=== PATIENT | male | born 1955 | race African-American/Black ===

== ENCOUNTER 2018-07-18 10:12 | Day surgery (SDC) | payer OTHER ==
[2018-07-18] VITALS (11 sets, daily range): BP systolic 107–138; BP diastolic 52–79; PULSE 50–65; TEMP 97.5–98.3
[~2018-07-18] VITALS: Ht 175.3 cm; Wt 57.9 kg
[~2018-07-18 10:12] MED LIST: ASPIRIN E.C. 8181 MG PO; B-121000 MCG PO; MULTI VITAMINS1 TAB PO; [UNRECOGNIZED DRUG - CODE]
[2018-07-18 10:50] LABS: HEMATOCRIT 41.2 % (42.0-52.0); HEMOGLOBIN 12.6 g/dl (13.5-18.0); MEAN CELL VOLUME 83 fl (80.0-100.0); MEAN CORPUSCULAR HEMOGLOBIN 25 pg (27.0-31.0); MEAN CORPUSCULAR HGB CONC 31 g/dl (33.0-37.0); MEAN PLATELET VOLUME 10.9 fl (7.4-10.4); PLATELET COUNT 50 K/mm3 (130-400); RED BLOOD COUNT 4.98 M/mm3 (4.20-5.60); REDCELL DISTRIBUTION WIDTH-CV 14.6 % (11.5-14.5)
[2018-07-18 11:04] LABS: ALBUMIN 4.5 gm/dL (3.5-5.0); CALCIUM 9.8 mg/dL (8.4-10.2); CREATININE, serum 0.98 mg/dL (0.66-1.25); TOTAL PROTEIN 7.4 gm/dL (6.4-8.2)
[2018-07-18] MEDS ORDERED: COLACE 100100 MG/CAP PO (17:09)
[2018-07-18] MEDS ORDERED: NORCO 325 MG-51 TAB PO (17:09)
== END 2018-07-18 20:30 | disposition home or self-care (01) ==
LOC: SDCO 10:12 → SURG 17:56 → SDCO 20:30
PROVIDERS: Surgery
DX: K40.90 Unilateral inguinal hernia, without obstruction or gangrene, not specified as recurrent (principal); D69.3 Immune thrombocytopenic purpura; Z87.891 Personal history of nicotine dependence; F43.10 Post-traumatic stress disorder, unspecified; E78.5 Hyperlipidemia, unspecified; D46.9 Myelodysplastic syndrome, unspecified; M41.9 Scoliosis, unspecified; Z79.82 Long term (current) use of aspirin; Z79.899 Other long term (current) drug therapy
CPT/HCPCS: OP; C1781; J0690; J1100; J2405; J2704; J3010; J7120; P9035

== ENCOUNTER 2019-10-11 16:52 | Observation (INO) | payer OTHER ==
[2019-10-11] VITALS (9 sets, daily range): BP systolic 133–162; BP diastolic 72–94; PULSE 54–74; TEMP 97.7–98.5
[~2019-10-11] VITALS: Ht 177.8 cm; Wt 62.7 kg
[~2019-10-11 16:52] MED LIST changes: +CBD PO; +COLACE 100100 MG/CAP PO; +COMPAZINE 110 MG/TAB PO; +DIFLUCAN200 MG PO; +LEVAQUIN 750MG750 M1 PO; +NORCO 325 MG-51 TAB PO; +ZOFRAN8 MG PO; +ZOVIRAX800 MG PO
--- NOTE | 2019-10-11 17:40 | NUR ---
PATIENT ADMITED INTO ROOM 323, DIRECT ADMIT FOR LOW PLATELETS. RIGHT UPPER ARM PICC INPLACE. LAB AT BEDSIDE TO GET LABS. HOSPITALIST AT BEDSIDE. FAMILY PRESENT.
--- NOTE | 2019-10-11 21:35 | NUR ---
Platelet trasfusion started at this time. Pt. educated on transfusion reactions, pt. verbalizes understanding. Vitals stable. Pt. denies pain or other needs. Will remain at bedside for next 15 minutes.
[2019-10-12] VITALS (7 sets, daily range): BP systolic 115–153; BP diastolic 63–86; PULSE 62–74; TEMP 97.3–98.7
[2019-10-12 06:16] LABS: CALCIUM 9.7 mg/dL (8.4-10.2); CREATININE, serum 0.97 (0.66-1.25); MAGNESIUM 1.8 mg/dL (1.6-2.3); POTASSIUM 3.9 mmol/L (3.4-5.0)
[2019-10-12 06:47] LABS: EOS # 0.1 (0.0-0.7); EOS % 2.3 % (0-4.0); GRAN # 1.3 (1.4-6.5); GRAN % 50.3 % (42.2-75.2); HEMOGLOBIN 10.6 g/dl (13.5-18.0); LYMPH # 1.2 (1.2-3.4); LYMPH % 44.7 % (20.0-51.0); MEAN CELL VOLUME 83 fl (80.0-100.0); MEAN CORPUSCULAR HEMOGLOBIN 27 pg (27.0-31.0); MEAN CORPUSCULAR HGB CONC 32 g/dl (33.0-37.0); MONO # 0.1 (0.1-0.6); MONO % 2.3 % (1.7-9.3); PLATELET COUNT 60 K/mm3 (130-400); RED BLOOD COUNT 3.95 M/mm3 (4.20-5.60); REDCELL DISTRIBUTION WIDTH-CV 15.1 % (11.5-14.5)
--- NOTE | 2019-10-12 07:01 | NUR ---
Report from Cody ALANIZ. Patiet sleeping at shift change.
[2019-10-12 07:10] LABS: HEMATOCRIT 32.7 % (42.0-52.0)
--- NOTE | 2019-10-12 08:42 | NUR ---
PT RESTING IN BED ATE BREAKFAST AND DENIES NAUSEA/VOMITING. AM MEDS GIVEN [id number]/
--- NOTE | 2019-10-12 10:52 | NUR ---
Initial visit; Patient thanked Civil Engineering Specialist for looking in on him and offering comfort and prayer.
--- NOTE | 2019-10-12 10:55 | NUR ---
Assistant Bookkeeper met with patient to discuss discharge planning. Patient lives alone in [place] but reports one of his daughters lives across the street from him and another daughter lives about a block away. Patient reports he sees Dr. Terrazas and also is seen by a doctor at [facility]. Patient has medications delivered to his home by the [facility]. Patient does not use any DME and is independent with ADLS. Patient is not sure if he has DPOA-HC set up. Patient plans to return home today with his daughter providing transportation.
--- NOTE | 2019-10-12 13:16 | NUR ---
TRANSFUSION COMPLETE, PT TOLERATED WELL, NO S/S OF TRANSFUSION REACTION.
--- NOTE | 2019-10-12 14:37 | NUR ---
DISCHARGE INSTRUCTIONS PROVIDED TO PATIENT AND FAMILY. QUESTIONS SOLICITED AND ANSWERED. [facility]
--- NOTE | 2019-10-12 14:38 | NUR ---
PICC LINE FLUSHED ALL LUMENS AND WERE FLOWING ON DEPARTURE.
== END 2019-10-12 14:39 | disposition home or self-care (01) ==
LOC: SURG 16:52
PROVIDERS: Nurse Practitioner Family; ADMIT Internal Medicine
DX: D69.6 Thrombocytopenia, unspecified (principal); Z85.6 Personal history of leukemia; Z92.21 Personal history of antineoplastic chemotherapy; F17.210 Nicotine dependence, cigarettes, uncomplicated; F43.10 Post-traumatic stress disorder, unspecified; Z80.8 Family history of malignant neoplasm of other organs or systems
CPT/HCPCS: G0378; G0379; J3475; P9037

== ENCOUNTER → 2020-01-03 | Outpatient (RCR) | payer OTHER ==
[2019-10-05 09:56] VITALS: BP 137/59; BP 149/87; PULSE 63; PULSE 73; TEMP 98.1; TEMP 98.2
--- NOTE | 2019-10-08 09:00 | NUR ---
Here for cares. PICC placed last July in [place]. with sterile technique right upper arm triple lumen PICC dressing change done with insertion site cleansed with chloraprep x 1, chlorhexidine impregnated disk applied, skin prep, stat lock, and tegaderm applied. no signs or symptoms of IV complications noted. no concerns voiced. re-wrapped with chandler to protect catheter. to return to as scheduled. voiced understanding of instructions.
[2019-10-08 09:27] LABS: HEMOGLOBIN 11.3 g/dl (13.5-18.0); MEAN CELL VOLUME 85 fl (80.0-100.0); MEAN CORPUSCULAR HEMOGLOBIN 27 pg (27.0-31.0); MEAN CORPUSCULAR HGB CONC 32 g/dl (33.0-37.0); RED BLOOD COUNT 4.15 M/mm3 (4.20-5.60); REDCELL DISTRIBUTION WIDTH-CV 15.1 % (11.5-14.5)
[2019-10-08 09:37] VITALS: BP 145/85; PULSE 62; TEMP 98
[2019-10-08 11:50] LABS: HEMATOCRIT 35.1 % (42.0-52.0)
[2019-10-08 11:51] LABS: PLATELET COUNT 26 K/mm3 (130-400)
[2019-10-08 12:30] LABS: ALBUMIN 4.1 gm/dL (3.5-5.0); BILIRUBIN,TOTAL 0.5 mg/dL (0.0-1.0); CALCIUM 9.3 mg/dL (8.4-10.2); CREATININE, serum 0.9 (0.66-1.25); POTASSIUM 3.4 mmol/L (3.4-5.0)
[2019-10-08 13:18] LABS: EOSINOPHIL 6 % (0-4); LYMPHOCYTE 38 % (20.0-51.0); NEUTROPHILS 56 % (42.0-75.2)
[2019-10-08 13:21] LABS: ANISOCYTOSIS 1+; HYPOCHROMIA 1+; PLATELET ESTIMATE DECREASED (NORMAL); TARGET CELLS 1+
[2019-10-08 13:22] LABS: POIKILOCYTOSIS 1+; SCHISTOCYTES 1+
[2019-10-11 09:12] VITALS: BP 149/97; PULSE 82; TEMP 97.8
[2019-10-11 09:27] LABS: HEMOGLOBIN 11.2 g/dl (13.5-18.0); MEAN CELL VOLUME 83 fl (80.0-100.0); MEAN CORPUSCULAR HEMOGLOBIN 27 pg (27.0-31.0); MEAN CORPUSCULAR HGB CONC 33 g/dl (33.0-37.0); RED BLOOD COUNT 4.15 M/mm3 (4.20-5.60)
[2019-10-11 09:30] LABS: HEMATOCRIT 34.4 % (42.0-52.0)
[2019-10-11 09:33] LABS: ALBUMIN 3.9 gm/dL (3.5-5.0); BILIRUBIN,TOTAL 0.6 mg/dL (0.0-1.0); CALCIUM 9.8 mg/dL (8.4-10.2); CREATININE, serum 0.82 (0.66-1.25); POTASSIUM 3.2 mmol/L (3.4-5.0); TOTAL PROTEIN 6.8 gm/dL (6.4-8.2)
[2019-10-11 09:46] LABS: PLATELET COUNT 5 K/mm3 (130-400)
[2019-10-11 10:21] LABS: EOSINOPHIL 2 % (0-4); LYMPHOCYTE 43 % (20.0-51.0); NEUTROPHILS 52 % (42.0-75.2)
[2019-10-11 10:28] LABS: PLATELET ESTIMATE DECREASED (NORMAL); TEAR DROP CELLS 1+
[2019-10-11 10:36] LABS: BASOPHIL 0 % (0-2)
--- NOTE | 2019-10-15 09:15 | NUR ---
Here for cares. with sterile technique right upper arm PICC dressing change done with insertion site cleansed with chloraprep x 1, chlorhexidine impregnated disk applied, skin prep, stat lock, and tegaderm applied. no signs or symptoms of IV complications noted. no concerns voiced. re-wrapped with chandler to protect catheter. to continue with cares in [place]. Voiced understanding of instructions.
[2019-10-15 09:27] LABS: HEMOGLOBIN 10.6 g/dl (13.5-18.0); MEAN CELL VOLUME 82 fl (80.0-100.0); MEAN CORPUSCULAR HEMOGLOBIN 26 pg (27.0-31.0); MEAN CORPUSCULAR HGB CONC 32 g/dl (33.0-37.0); PLATELET COUNT 52 K/mm3 (130-400); RED BLOOD COUNT 4.02 M/mm3 (4.20-5.60); REDCELL DISTRIBUTION WIDTH-CV 15.2 % (11.5-14.5)
[2019-10-15 09:30] LABS: HEMATOCRIT 32.8 % (42.0-52.0)
[2019-10-15 09:37] VITALS: BP 132/77; PULSE 64; TEMP 97.9
[2019-10-15 09:44] LABS: ALBUMIN 4.2 gm/dL (3.5-5.0); BILIRUBIN,TOTAL 0.5 mg/dL (0.0-1.0); CALCIUM 9.6 mg/dL (8.4-10.2); CREATININE, serum 1.06 (0.66-1.25); POTASSIUM 3.5 mmol/L (3.4-5.0); TOTAL PROTEIN 7.1 gm/dL (6.4-8.2)
[2019-10-15 10:52] LABS: EOSINOPHIL 2 % (0-4); LYMPHOCYTE 64 % (20.0-51.0); METAMYELOCYTE 1 % (0-0); NEUTROPHILS 29 % (42.0-75.2)
[2019-10-15 10:53] LABS: HYPOCHROMIA 1+; OVALOCYTES 2+; PLATELET ESTIMATE DECREASED (NORMAL); SCHISTOCYTES 1+
[2019-10-18 09:24] VITALS: BP 149/62; PULSE 58; TEMP 97.5
[2019-10-18 09:54] LABS: HEMOGLOBIN 10.5 g/dl (13.5-18.0); MEAN CELL VOLUME 82 fl (80.0-100.0); MEAN CORPUSCULAR HEMOGLOBIN 26 pg (27.0-31.0); MEAN CORPUSCULAR HGB CONC 32 g/dl (33.0-37.0); RED BLOOD COUNT 3.97 M/mm3 (4.20-5.60); REDCELL DISTRIBUTION WIDTH-CV 15.3 % (11.5-14.5)
[2019-10-18 09:58] LABS: ALBUMIN 4.1 gm/dL (3.5-5.0); BILIRUBIN,TOTAL 0.4 mg/dL (0.0-1.0); CALCIUM 9.6 mg/dL (8.4-10.2); CREATININE, serum 0.97 (0.66-1.25); POTASSIUM 3.5 mmol/L (3.4-5.0)
[2019-10-18 10:12] LABS: HEMATOCRIT 32.4 % (42.0-52.0); PLATELET COUNT 18 K/mm3 (130-400)
[2019-10-18 10:40] LABS: EOSINOPHIL 2 % (0-4); LYMPHOCYTE 79 % (20.0-51.0); NEUTROPHILS 11 % (42.0-75.2); PLATELET ESTIMATE DECREASED (NORMAL)
[2019-10-18 10:42] LABS: SPHEROCYTE 1+; TEAR DROP CELLS 1+
[2019-10-18 10:43] LABS: ANISOCYTOSIS 1+
--- NOTE | 2019-10-22 09:00 | NUR ---
Here for cares. with sterile technique right upper arm PICC dressing change done with insertion site cleansed with chloraprep x 1, chlorhexidine impregnate disk applied, skin prep, stat lock, and tegaderm applied. no signs or symptoms of IV complications noted. no concerns voiced. re-wrapped with chandler to protect catheter. to return next week for cares. voiced understanding of instructions.
[2019-10-22 09:28] VITALS: BP 145/81; PULSE 76; TEMP 98.2
[2019-10-22 09:42] LABS: HEMOGLOBIN 10.8 g/dl (13.5-18.0); MEAN CELL VOLUME 81 fl (80.0-100.0); MEAN CORPUSCULAR HEMOGLOBIN 27 pg (27.0-31.0); MEAN CORPUSCULAR HGB CONC 33 g/dl (33.0-37.0); RED BLOOD COUNT 4.07 M/mm3 (4.20-5.60); REDCELL DISTRIBUTION WIDTH-CV 15.8 % (11.5-14.5)
[2019-10-22 09:45] LABS: ALBUMIN 4.3 gm/dL (3.5-5.0); BILIRUBIN,TOTAL 0.6 mg/dL (0.0-1.0); CALCIUM 9.7 mg/dL (8.4-10.2); CREATININE, serum 1.08 (0.66-1.25); POTASSIUM 3.4 mmol/L (3.4-5.0); TOTAL PROTEIN 7.2 gm/dL (6.4-8.2)
[2019-10-22 09:51] LABS: HEMATOCRIT 33.1 % (42.0-52.0); PLATELET COUNT 29 K/mm3 (130-400)
[2019-10-22 10:39] LABS: ANISOCYTOSIS 1+; BAND 2 % (0-10); EOSINOPHIL 2 % (0-4); LYMPHOCYTE 80 % (20.0-51.0); NEUTROPHILS 8 % (42.0-75.2); NUCLEATED RED BLOOD CELL 1 (0-6); OVALOCYTES 1+; PLATELET ESTIMATE DECREASED (NORMAL); TARGET CELLS 2+; TEAR DROP CELLS 1+
--- NOTE | 2019-10-25 09:20 | NUR ---
NOTED CRITICAL PLATELET VALUE, HOWEVER DID NOT CALL MD OFFICE IT IS NOTED IN CHART THAT CARLA RN WAS CALLED AND RECEIVED RESULT ALREADY.
[2019-10-25 09:21] VITALS: BP 133/88; PULSE 87; TEMP 97.1
[2019-10-25 09:40] LABS: HEMOGLOBIN 10.1 g/dl (13.5-18.0); MEAN CELL VOLUME 82 fl (80.0-100.0); MEAN CORPUSCULAR HEMOGLOBIN 26 pg (27.0-31.0); MEAN CORPUSCULAR HGB CONC 32 g/dl (33.0-37.0); RED BLOOD COUNT 3.83 M/mm3 (4.20-5.60); REDCELL DISTRIBUTION WIDTH-CV 16.5 % (11.5-14.5)
[2019-10-25 09:41] LABS: HEMATOCRIT 31.4 % (42.0-52.0)
[2019-10-25 09:44] LABS: PLATELET COUNT 25 K/mm3 (130-400)
[2019-10-25 09:54] LABS: ALBUMIN 4.2 gm/dL (3.5-5.0); BILIRUBIN,TOTAL 0.7 mg/dL (0.0-1.0); CALCIUM 9.6 mg/dL (8.4-10.2); CREATININE, serum 1.07 (0.66-1.25); POTASSIUM 3.2 mmol/L (3.4-5.0)
[2019-10-25 10:49] LABS: BAND 4 % (0-10); EOSINOPHIL 3 % (0-4); LYMPHOCYTE 77 % (20.0-51.0); NEUTROPHILS 9 % (42.0-75.2); PLATELET ESTIMATE DECREASED (NORMAL)
[2019-10-25 10:50] LABS: ANISOCYTOSIS 1+; POIKILOCYTOSIS 1+; SCHISTOCYTES 1+; TEAR DROP CELLS 1+
--- NOTE | 2019-10-29 09:10 | NUR ---
here for cares. With sterile technique right upper arm PICC dressing change done with insertion site cleansed with ChloraPrep 1, chlorhexidine impregnated disc applied, skin prep, StatLock, and Tegaderm applied. No signs or symptoms of IV complications noted. No concerns voiced. Arm wrapped with Russ to protect catheter. Patient to return next week for cares. Patient voiced understanding of instructions.
[2019-10-29 09:14] VITALS: BP 149/99; PULSE 78; TEMP 97.4
[2019-10-29 09:15] LABS: MEAN CELL VOLUME 82 fl (80.0-100.0); MEAN CORPUSCULAR HEMOGLOBIN 27 pg (27.0-31.0); MEAN CORPUSCULAR HGB CONC 33 g/dl (33.0-37.0); RED BLOOD COUNT 3.76 M/mm3 (4.20-5.60); REDCELL DISTRIBUTION WIDTH-CV 17.2 % (11.5-14.5)
[2019-10-29 09:17] LABS: HEMATOCRIT 30.7 % (42.0-52.0)
[2019-10-29 09:20] LABS: PLATELET COUNT 34 K/mm3 (130-400)
[2019-10-29 09:39] LABS: BILIRUBIN,TOTAL 0.6 mg/dL (0.0-1.0); CALCIUM 9.6 mg/dL (8.4-10.2); CREATININE, serum 1.02 (0.66-1.25); POTASSIUM 3.3 mmol/L (3.4-5.0); TOTAL PROTEIN 6.9 gm/dL (6.4-8.2)
[2019-10-29 10:05] LABS: LYMPHOCYTE 63 % (20.0-51.0); MICROCYTOSIS 1+; NEUTROPHILS 19 % (42.0-75.2); POIKILOCYTOSIS 1+
[2019-10-29 10:06] LABS: ANISOCYTOSIS 1+
[2019-11-01 09:21] VITALS: BP 127/72; PULSE 77; TEMP 98
[2019-11-01 09:30] LABS: MEAN CELL VOLUME 83 fl (80.0-100.0); MEAN CORPUSCULAR HEMOGLOBIN 27 pg (27.0-31.0); MEAN CORPUSCULAR HGB CONC 32 g/dl (33.0-37.0); RED BLOOD COUNT 3.78 M/mm3 (4.20-5.60)
[2019-11-01 09:31] LABS: ALBUMIN 4.2 gm/dL (3.5-5.0); BILIRUBIN,TOTAL 0.7 mg/dL (0.0-1.0); CALCIUM 9.5 mg/dL (8.4-10.2); CREATININE, serum 1.09 (0.66-1.25); POTASSIUM 3.3 mmol/L (3.4-5.0); TOTAL PROTEIN 6.9 gm/dL (6.4-8.2)
[2019-11-01 09:32] LABS: HEMATOCRIT 31.2 % (42.0-52.0)
[2019-11-01 09:35] LABS: PLATELET COUNT 38 K/mm3 (130-400)
[2019-11-01 10:32] LABS: BAND 1 % (0-10); NEUTROPHILS 22 % (42.0-75.2); NUCLEATED RED BLOOD CELL 1 (0-6)
[2019-11-01 10:58] LABS: ANISOCYTOSIS 1+
[2019-11-01 10:59] LABS: MICROCYTOSIS 1+; POIKILOCYTOSIS 1+; POLYCHROMASIA 1+; TARGET CELLS 1+
[2019-11-01 11:00] LABS: HYPOCHROMIA 1+; PLATELET ESTIMATE DECREASED (NORMAL)
[2019-11-01 11:01] LABS: LYMPHOCYTE 68 % (20.0-51.0)
[2019-11-02 07:58] LABS: PATHOLOGY DIFF REVIEW OK
--- NOTE | 2019-11-05 09:00 | NUR ---
Here for cares. with sterile technique right upper arm PICC dressing change done with insertion site cleansed with chloraprep x 1, chlorhexidine impreganted disk applied, skin prep, stat lock, and tegaderm applied. no signs or symptoms of IV complications noted. no concerns voiced. re-wrapped with chandler to protect catheter. to return as scheduled for cares. voiced understanding of instructions.
[2019-11-05 09:21] VITALS: BP 147/91; PULSE 75; TEMP 98.4
[2019-11-05 09:41] LABS: MEAN CELL VOLUME 84 fl (80.0-100.0); MEAN CORPUSCULAR HGB CONC 32 g/dl (33.0-37.0); RED BLOOD COUNT 3.63 M/mm3 (4.20-5.60); REDCELL DISTRIBUTION WIDTH-CV 19.7 % (11.5-14.5)
[2019-11-05 09:43] LABS: HEMATOCRIT 30.3 % (42.0-52.0); HEMOGLOBIN 9.7 g/dl (13.5-18.0); MEAN CORPUSCULAR HEMOGLOBIN 27 pg (27.0-31.0)
[2019-11-05 09:44] LABS: PLATELET COUNT 41 K/mm3 (130-400)
[2019-11-05 09:45] LABS: BILIRUBIN,TOTAL 0.6 mg/dL (0.0-1.0); CALCIUM 9.4 mg/dL (8.4-10.2); CREATININE, serum 0.97 (0.66-1.25); POTASSIUM 3.3 mmol/L (3.4-5.0); TOTAL PROTEIN 6.8 gm/dL (6.4-8.2)
[2019-11-05 10:09] LABS: ANISOCYTOSIS 2+; BAND 1 % (0-10); LYMPHOCYTE 57 % (20.0-51.0); NEUTROPHILS 27 % (42.0-75.2); PLATELET ESTIMATE DECREASED (NORMAL)
[2019-11-05 10:10] LABS: MICROCYTOSIS 1+; OVALOCYTES 1+; POIKILOCYTOSIS 2+; TEAR DROP CELLS 1+
[2019-11-08 09:30] VITALS: BP 146/94; PULSE 72; TEMP 97.9
[2019-11-08 09:35] LABS: HEMOGLOBIN 10.1 g/dl (13.5-18.0); MEAN CELL VOLUME 84 fl (80.0-100.0); MEAN CORPUSCULAR HEMOGLOBIN 27 pg (27.0-31.0); MEAN CORPUSCULAR HGB CONC 32 g/dl (33.0-37.0); PLATELET COUNT 51 K/mm3 (130-400); RED BLOOD COUNT 3.75 M/mm3 (4.20-5.60); REDCELL DISTRIBUTION WIDTH-CV 21.2 % (11.5-14.5)
[2019-11-08 09:42] LABS: HEMATOCRIT 31.6 % (42.0-52.0)
[2019-11-08 09:45] LABS: ALBUMIN 4.1 gm/dL (3.5-5.0); BILIRUBIN,TOTAL 0.5 mg/dL (0.0-1.0); CALCIUM 9.6 mg/dL (8.4-10.2); CREATININE, serum 1.01 (0.66-1.25); POTASSIUM 3.4 mmol/L (3.4-5.0); TOTAL PROTEIN 6.8 gm/dL (6.4-8.2)
[2019-11-08 10:14] LABS: BAND 3 % (0-10); HYPOCHROMIA 2+; LYMPHOCYTE 54 % (20.0-51.0); METAMYELOCYTE 2 % (0-0); NEUTROPHILS 20 % (42.0-75.2)
[2019-11-08 10:15] LABS: ANISOCYTOSIS 2+; MICROCYTOSIS 2+; OVALOCYTES 1+; PLATELET ESTIMATE DECREASED (NORMAL); POIKILOCYTOSIS 1+
--- NOTE | 2019-11-12 11:00 | NUR ---
Called pt d/t no show. In [place] today
[2019-11-15 10:20] VITALS: BP 155/87; PULSE 71; TEMP 98
[2019-11-15 10:43] LABS: ALBUMIN 4.2 gm/dL (3.5-5.0); BILIRUBIN,TOTAL 0.5 mg/dL (0.0-1.0); CALCIUM 9.6 mg/dL (8.4-10.2); CREATININE, serum 0.91 (0.66-1.25); POTASSIUM 3.7 mmol/L (3.4-5.0)
[2019-11-15 10:48] LABS: HEMOGLOBIN 10.6 g/dl (13.5-18.0); MEAN CELL VOLUME 86 fl (80.0-100.0); MEAN CORPUSCULAR HEMOGLOBIN 28 pg (27.0-31.0); MEAN CORPUSCULAR HGB CONC 32 g/dl (33.0-37.0); PLATELET COUNT 77 K/mm3 (130-400); RED BLOOD COUNT 3.85 M/mm3 (4.20-5.60)
[2019-11-15 10:49] LABS: HEMATOCRIT 33.2 % (42.0-52.0)
--- NOTE | 2019-11-15 11:08 | NUR ---
Per pt report he will be at tuesday and Tuesday.Dressing change done today by this nurse.
[2019-11-15 11:19] LABS: LYMPHOCYTE 28 % (20.0-51.0); NEUTROPHILS 51 % (42.0-75.2); PLATELET ESTIMATE DECREASED (NORMAL)
[2019-11-15 11:20] LABS: OVALOCYTES 1+
[2019-11-15 11:21] LABS: ANISOCYTOSIS 2+; TEAR DROP CELLS 1+
[2019-11-22 14:17] LABS: HEMOGLOBIN 11.6 g/dl (13.5-18.0); MEAN CELL VOLUME 87 fl (80.0-100.0); MEAN CORPUSCULAR HEMOGLOBIN 27 pg (27.0-31.0); MEAN CORPUSCULAR HGB CONC 31 g/dl (33.0-37.0); PLATELET COUNT 114 K/mm3 (130-400); RED BLOOD COUNT 4.24 M/mm3 (4.20-5.60); REDCELL DISTRIBUTION WIDTH-CV 21.9 % (11.5-14.5)
[2019-11-22 14:20] LABS: HEMATOCRIT 36.9 % (42.0-52.0)
[2019-11-22 14:27] LABS: ALBUMIN 4.5 gm/dL (3.5-5.0); BILIRUBIN,TOTAL 0.5 mg/dL (0.0-1.0); CALCIUM 9.9 mg/dL (8.4-10.2); CREATININE, serum 0.95 (0.66-1.25); POTASSIUM 3.6 mmol/L (3.4-5.0); TOTAL PROTEIN 7.5 gm/dL (6.4-8.2)
[2019-11-22 14:31] VITALS: BP 124/84; PULSE 76; TEMP 98.4
[2019-11-22 16:48] LABS: ANISOCYTOSIS 2+; BAND 8 % (0-10); LYMPHOCYTE 25 % (20.0-51.0); NEUTROPHILS 62 % (42.0-75.2); TARGET CELLS 2+; TEAR DROP CELLS 1+
[2019-11-22 16:49] LABS: HYPOCHROMIA 1+; PLATELET ESTIMATE NORMAL (NORMAL)
[2019-11-26 10:30] VITALS: BP 144/89; PULSE 70; TEMP 97.7
[2019-11-26 10:33] LABS: HEMOGLOBIN 11.3 g/dl (13.5-18.0); MEAN CELL VOLUME 87 fl (80.0-100.0); MEAN CORPUSCULAR HEMOGLOBIN 27 pg (27.0-31.0); MEAN CORPUSCULAR HGB CONC 31 g/dl (33.0-37.0); PLATELET COUNT 105 K/mm3 (130-400); RED BLOOD COUNT 4.17 M/mm3 (4.20-5.60)
[2019-11-26 10:35] LABS: HEMATOCRIT 36.4 % (42.0-52.0)
[2019-11-26 10:47] LABS: ALBUMIN 4.2 gm/dL (3.5-5.0); BILIRUBIN,TOTAL 0.3 mg/dL (0.0-1.0); CALCIUM 9.3 mg/dL (8.4-10.2); CREATININE, serum 0.87 (0.66-1.25); POTASSIUM 3.4 mmol/L (3.4-5.0)
[2019-11-26 11:06] LABS: BAND 4 % (0-10); EOSINOPHIL 3 % (0-4); LYMPHOCYTE 36 % (20.0-51.0); NEUTROPHILS 45 % (42.0-75.2); OVALOCYTES 1+; POIKILOCYTOSIS 1+; TARGET CELLS 1+; TEAR DROP CELLS 1+
[2019-11-26 11:07] LABS: ANISOCYTOSIS 2+; PLATELET ESTIMATE DECREASED (NORMAL)
[2019-11-29 09:37] LABS: HEMOGLOBIN 11.2 g/dl (13.5-18.0); MEAN CELL VOLUME 87 fl (80.0-100.0); MEAN CORPUSCULAR HEMOGLOBIN 27 pg (27.0-31.0); MEAN CORPUSCULAR HGB CONC 31 g/dl (33.0-37.0); PLATELET COUNT 103 K/mm3 (130-400); RED BLOOD COUNT 4.19 M/mm3 (4.20-5.60); REDCELL DISTRIBUTION WIDTH-CV 20.6 % (11.5-14.5)
[2019-11-29 09:40] VITALS: BP 127/75; PULSE 76; TEMP 98.3
[2019-11-29 09:47] LABS: ALBUMIN 4.3 gm/dL (3.5-5.0); BILIRUBIN,TOTAL 0.4 mg/dL (0.0-1.0); CALCIUM 9.7 mg/dL (8.4-10.2); CREATININE, serum 0.82 (0.66-1.25); TOTAL PROTEIN 6.9 gm/dL (6.4-8.2)
[2019-11-29 10:20] LABS: HEMATOCRIT 36.6 % (42.0-52.0)
[2019-11-29 10:35] LABS: BAND 2 % (0-10); EOSINOPHIL 1 % (0-4); LYMPHOCYTE 46 % (20.0-51.0); NEUTROPHILS 49 % (42.0-75.2); OVALOCYTES 2+; PLATELET ESTIMATE DECREASED (NORMAL); SCHISTOCYTES 1+
[2019-12-03 10:28] LABS: HEMATOCRIT 39.6 % (42.0-52.0); HEMOGLOBIN 12.4 g/dl (13.5-18.0); MEAN CELL VOLUME 87 fl (80.0-100.0); MEAN CORPUSCULAR HEMOGLOBIN 27 pg (27.0-31.0); MEAN CORPUSCULAR HGB CONC 31 g/dl (33.0-37.0); PLATELET COUNT 96 K/mm3 (130-400); RED BLOOD COUNT 4.54 M/mm3 (4.20-5.60); REDCELL DISTRIBUTION WIDTH-CV 19.7 % (11.5-14.5)
[2019-12-03 10:31] LABS: ALBUMIN 4.5 gm/dL (3.5-5.0); BILIRUBIN,TOTAL 0.5 mg/dL (0.0-1.0); CALCIUM 10.1 mg/dL (8.4-10.2); CREATININE, serum 1.03 (0.66-1.25); POTASSIUM 4.1 mmol/L (3.4-5.0); TOTAL PROTEIN 7.5 gm/dL (6.4-8.2)
[2019-12-03 10:50] LABS: BAND 2 % (0-10); EOSINOPHIL 2 % (0-4); LYMPHOCYTE 36 % (20.0-51.0); NEUTROPHILS 51 % (42.0-75.2)
[2019-12-03 10:51] LABS: OVALOCYTES 2+; PLATELET ESTIMATE DECREASED (NORMAL); SCHISTOCYTES 2+
[2019-12-03 12:22] VITALS: BP 139/89; PULSE 98; TEMP 98.2
[2019-12-06 10:12] VITALS: BP 131/72; PULSE 86; TEMP 97.5
[2019-12-06 10:50] LABS: HEMATOCRIT 38.7 % (42.0-52.0); HEMOGLOBIN 12.2 g/dl (13.5-18.0); MEAN CELL VOLUME 87 fl (80.0-100.0); MEAN CORPUSCULAR HEMOGLOBIN 27 pg (27.0-31.0); MEAN CORPUSCULAR HGB CONC 32 g/dl (33.0-37.0); PLATELET COUNT 93 K/mm3 (130-400); RED BLOOD COUNT 4.45 M/mm3 (4.20-5.60)
[2019-12-06 11:04] LABS: ALBUMIN 4.4 gm/dL (3.5-5.0); BILIRUBIN,TOTAL 0.3 mg/dL (0.0-1.0); CALCIUM 9.9 mg/dL (8.4-10.2); CREATININE, serum 0.94 (0.66-1.25); POTASSIUM 3.8 mmol/L (3.4-5.0); TOTAL PROTEIN 7.3 gm/dL (6.4-8.2)
[2019-12-06 12:13] LABS: LYMPHOCYTE 27 % (20.0-51.0); NEUTROPHILS 58 % (42.0-75.2)
[2019-12-06 12:38] LABS: PLATELET ESTIMATE DECREASED (NORMAL)
[2019-12-10 10:57] VITALS: BP 129/76; PULSE 75; TEMP 97.8
[2019-12-10 11:01] LABS: HEMATOCRIT 37.8 % (42.0-52.0); HEMOGLOBIN 11.7 g/dl (13.5-18.0); MEAN CELL VOLUME 87 fl (80.0-100.0); MEAN CORPUSCULAR HEMOGLOBIN 27 pg (27.0-31.0); MEAN CORPUSCULAR HGB CONC 31 g/dl (33.0-37.0); PLATELET COUNT 79 K/mm3 (130-400); RED BLOOD COUNT 4.33 M/mm3 (4.20-5.60); REDCELL DISTRIBUTION WIDTH-CV 18.5 % (11.5-14.5)
[2019-12-10 11:02] LABS: ALBUMIN 4.3 gm/dL (3.5-5.0); BILIRUBIN,TOTAL 0.3 mg/dL (0.0-1.0); CALCIUM 9.8 mg/dL (8.4-10.2); CREATININE, serum 0.99 (0.66-1.25); POTASSIUM 3.8 mmol/L (3.4-5.0); TOTAL PROTEIN 6.9 gm/dL (6.4-8.2)
[2019-12-10 11:48] LABS: BAND 1 % (0-10); EOSINOPHIL 3 % (0-4); LYMPHOCYTE 28 % (20.0-51.0); NEUTROPHILS 58 % (42.0-75.2)
[2019-12-10 11:49] LABS: ANISOCYTOSIS 2+; MICROCYTOSIS 1+; POLYCHROMASIA 1+
[2019-12-10 11:51] LABS: OVALOCYTES 1+; PLATELET ESTIMATE DECREASED (NORMAL); POIKILOCYTOSIS 2+; SCHISTOCYTES 1+
[2019-12-11 08:27] LABS: PATHOLOGY DIFF REVIEW OK
[2019-12-13 10:08] VITALS: BP 138/82; PULSE 73; TEMP 97.7
[2019-12-13 11:06] LABS: HEMATOCRIT 37.8 % (42.0-52.0); HEMOGLOBIN 11.7 g/dl (13.5-18.0); MEAN CELL VOLUME 87 fl (80.0-100.0); MEAN CORPUSCULAR HEMOGLOBIN 27 pg (27.0-31.0); MEAN CORPUSCULAR HGB CONC 31 g/dl (33.0-37.0); PLATELET COUNT 78 K/mm3 (130-400); RED BLOOD COUNT 4.37 M/mm3 (4.20-5.60); REDCELL DISTRIBUTION WIDTH-CV 18.1 % (11.5-14.5)
[2019-12-13 11:14] LABS: ALBUMIN 4.2 gm/dL (3.5-5.0); BILIRUBIN,TOTAL 0.4 mg/dL (0.0-1.0); CALCIUM 9.6 mg/dL (8.4-10.2); CREATININE, serum 0.97 (0.66-1.25); POTASSIUM 3.7 mmol/L (3.4-5.0); TOTAL PROTEIN 6.9 gm/dL (6.4-8.2)
[2019-12-13 11:48] LABS: EOSINOPHIL 2 % (0-4); LYMPHOCYTE 26 % (20.0-51.0); NEUTROPHILS 58 % (42.0-75.2)
[2019-12-13 11:49] LABS: HYPOCHROMIA 2+; OVALOCYTES 2+; PLATELET ESTIMATE DECREASED (NORMAL); SCHISTOCYTES 1+; TEAR DROP CELLS 1+
--- NOTE | 2019-12-17 10:10 | NUR ---
Here for cares. With sterile technique right upper arm PICC dressing change done with insertion site cleansed with ChloraPrep 1, chlorhexidine impregnated disc applied, skin prep, StatLock, and Tegaderm applied. No signs or symptoms of IV complications noted. No concerns voiced. With Russ to protect catheter. Patient return as scheduled to express unit for cares. Patient voiced understanding of instructions.
[2019-12-17 10:35] VITALS: BP 129/76; PULSE 72; TEMP 97.9
[2019-12-17 10:57] LABS: HEMATOCRIT 37.7 % (42.0-52.0); MEAN CELL VOLUME 85 fl (80.0-100.0); MEAN CORPUSCULAR HEMOGLOBIN 27 pg (27.0-31.0); MEAN CORPUSCULAR HGB CONC 32 g/dl (33.0-37.0); PLATELET COUNT 76 K/mm3 (130-400); RED BLOOD COUNT 4.45 M/mm3 (4.20-5.60); REDCELL DISTRIBUTION WIDTH-CV 17.6 % (11.5-14.5)
[2019-12-17 11:03] LABS: ALBUMIN 4.2 gm/dL (3.5-5.0); BILIRUBIN,TOTAL 0.4 mg/dL (0.0-1.0); CALCIUM 9.6 mg/dL (8.4-10.2); CREATININE, serum 0.96 (0.66-1.25); POTASSIUM 3.7 mmol/L (3.4-5.0); TOTAL PROTEIN 6.9 gm/dL (6.4-8.2)
[2019-12-17 12:03] LABS: BASOPHIL 1 % (0-2); EOSINOPHIL 2 % (0-4); NEUTROPHILS 42 % (42.0-75.2)
[2019-12-17 12:06] LABS: ANISOCYTOSIS 1+
[2019-12-17 12:08] LABS: MICROCYTOSIS 1+
[2019-12-17 12:09] LABS: POLYCHROMASIA 1+
[2019-12-17 12:11] LABS: POIKILOCYTOSIS 1+
[2019-12-17 12:17] LABS: LYMPHOCYTE 45 % (20.0-51.0); PLATELET ESTIMATE DECREASED (NORMAL)
[2019-12-20 10:17] VITALS: BP 142/89; PULSE 71; TEMP 97.6
[2019-12-20 10:42] LABS: HEMOGLOBIN 11.7 g/dl (13.5-18.0); MEAN CELL VOLUME 85 fl (80.0-100.0); MEAN CORPUSCULAR HEMOGLOBIN 27 pg (27.0-31.0); MEAN CORPUSCULAR HGB CONC 32 g/dl (33.0-37.0); PLATELET COUNT 69 K/mm3 (130-400); REDCELL DISTRIBUTION WIDTH-CV 17.4 % (11.5-14.5)
[2019-12-20 10:48] LABS: ALBUMIN 4.1 gm/dL (3.5-5.0); BILIRUBIN,TOTAL 0.4 mg/dL (0.0-1.0); CALCIUM 9.6 mg/dL (8.4-10.2); CREATININE, serum 0.99 (0.66-1.25); POTASSIUM 3.5 mmol/L (3.4-5.0); TOTAL PROTEIN 6.7 gm/dL (6.4-8.2)
[2019-12-20 10:57] LABS: HEMATOCRIT 36.4 % (42.0-52.0)
[2019-12-20 12:00] LABS: BASOPHIL 1 % (0-2); EOSINOPHIL 1 % (0-4); LYMPHOCYTE 33 % (20.0-51.0); NEUTROPHILS 55 % (42.0-75.2)
[2019-12-20 12:01] LABS: ANISOCYTOSIS 1+; MICROCYTOSIS 1+; OVALOCYTES 1+; POIKILOCYTOSIS 1+; TARGET CELLS 1+
[2019-12-20 12:02] LABS: PLATELET ESTIMATE DECREASED (NORMAL)
[2019-12-24 10:11] VITALS: BP 140/85; PULSE 64; TEMP 98.1
--- NOTE | 2019-12-24 10:15 | NUR ---
here for cares. With sterile technique right upper arm PICC dressing change done with insertion site cleansed with ChloraPrep 1, chlorhexidine impregnated disc applied, skin prep, StatLock, and Tegaderm applied. Signs or symptoms of IV complications noted. No concerns voiced. Arm wrapped with Russ to protect catheter. Patient to continue with cares in the express unit. Patient voiced understanding of instructions.
[2019-12-24 11:30] LABS: HEMATOCRIT 38.2 % (42.0-52.0); HEMOGLOBIN 11.9 g/dl (13.5-18.0); MEAN CELL VOLUME 85 fl (80.0-100.0); MEAN CORPUSCULAR HEMOGLOBIN 27 pg (27.0-31.0); MEAN CORPUSCULAR HGB CONC 31 g/dl (33.0-37.0); PLATELET COUNT 68 K/mm3 (130-400); RED BLOOD COUNT 4.49 M/mm3 (4.20-5.60); REDCELL DISTRIBUTION WIDTH-CV 17.3 % (11.5-14.5)
[2019-12-24 11:31] LABS: ALBUMIN 3.9 gm/dL (3.5-5.0); BILIRUBIN,TOTAL 0.3 mg/dL (0.0-1.0); CALCIUM 9.4 mg/dL (8.4-10.2); CREATININE, serum 0.89 (0.66-1.25); POTASSIUM 3.7 mmol/L (3.4-5.0); TOTAL PROTEIN 6.7 gm/dL (6.4-8.2)
[2019-12-24 12:27] LABS: BAND 1 % (0-10); EOSINOPHIL 3 % (0-4); HYPOCHROMIA 1+; LYMPHOCYTE 29 % (20.0-51.0); NEUTROPHILS 61 % (42.0-75.2); PLATELET ESTIMATE DECREASED (NORMAL)
[2019-12-24 12:28] LABS: ANISOCYTOSIS 1+; MICROCYTOSIS 1+; POIKILOCYTOSIS 1+
[2019-12-24 12:29] LABS: TARGET CELLS 1+
[2019-12-27 10:23] VITALS: BP 122/84; PULSE 67; TEMP 98
[2019-12-27 10:49] LABS: HEMATOCRIT 39.3 % (42.0-52.0); HEMOGLOBIN 12.5 g/dl (13.5-18.0); MEAN CELL VOLUME 85 fl (80.0-100.0); MEAN CORPUSCULAR HEMOGLOBIN 27 pg (27.0-31.0); MEAN CORPUSCULAR HGB CONC 32 g/dl (33.0-37.0); PLATELET COUNT 66 K/mm3 (130-400); RED BLOOD COUNT 4.63 M/mm3 (4.20-5.60); REDCELL DISTRIBUTION WIDTH-CV 17.4 % (11.5-14.5)
[2019-12-27 11:05] LABS: ALBUMIN 4.2 gm/dL (3.5-5.0); BILIRUBIN,TOTAL 0.4 mg/dL (0.0-1.0); CALCIUM 9.6 mg/dL (8.4-10.2); CREATININE, serum 0.9 (0.66-1.25); POTASSIUM 3.6 mmol/L (3.4-5.0); TOTAL PROTEIN 7.2 gm/dL (6.4-8.2)
[2019-12-27 12:12] LABS: BAND 4 % (0-10); NEUTROPHILS 56 % (42.0-75.2); NUCLEATED RED BLOOD CELL 1 (0-6)
[2019-12-27 12:13] LABS: LYMPHOCYTE 28 % (20.0-51.0)
[2019-12-27 12:14] LABS: POIKILOCYTOSIS 1+; TARGET CELLS 1+
[2019-12-27 12:15] LABS: PLATELET ESTIMATE DECREASED (NORMAL)
[2019-12-27 12:16] LABS: ANISOCYTOSIS 1+; MICROCYTOSIS 1+; SCHISTOCYTES 1+
[2019-12-27 12:17] LABS: OVALOCYTES 1+
[2019-12-28 08:26] LABS: PATHOLOGY DIFF REVIEW OK +
[2019-12-31 10:30] VITALS: BP 138/94; PULSE 82; TEMP 97.7
[2019-12-31 10:52] LABS: HEMATOCRIT 40.3 % (42.0-52.0); HEMOGLOBIN 12.8 g/dl (13.5-18.0); MEAN CELL VOLUME 83 fl (80.0-100.0); MEAN CORPUSCULAR HEMOGLOBIN 27 pg (27.0-31.0); MEAN CORPUSCULAR HGB CONC 32 g/dl (33.0-37.0); PLATELET COUNT 62 K/mm3 (130-400); RED BLOOD COUNT 4.83 M/mm3 (4.20-5.60); REDCELL DISTRIBUTION WIDTH-CV 17.1 % (11.5-14.5)
[2019-12-31 10:53] LABS: ALBUMIN 4.3 gm/dL (3.5-5.0); BILIRUBIN,TOTAL 0.6 mg/dL (0.0-1.0); CALCIUM 9.8 mg/dL (8.4-10.2); CREATININE, serum 0.93 (0.66-1.25); POTASSIUM 3.6 mmol/L (3.4-5.0); TOTAL PROTEIN 7.3 gm/dL (6.4-8.2)
--- NOTE | 2019-12-31 11:30 | NUR ---
Informed CORBIN Nicole with [facility] will be unable to do dressing change. This RN will perform dressing change. WBC=5.1
[2019-12-31 11:40] LABS: BAND 3 % (0-10); EOSINOPHIL 1 % (0-4); LYMPHOCYTE 44 % (20.0-51.0); NEUTROPHILS 47 % (42.0-75.2); PLATELET ESTIMATE DECREASED (NORMAL); TARGET CELLS 1+
[~2020-01-03] VITALS: Ht 175.3 cm; Wt 60.6 kg
[2020-01-03 10:55] VITALS: BP 155/94; PULSE 79; TEMP 97.9
[2020-01-03 10:59] LABS: HEMATOCRIT 38.9 % (42.0-52.0); HEMOGLOBIN 12.5 g/dl (13.5-18.0); MEAN CELL VOLUME 84 fl (80.0-100.0); MEAN CORPUSCULAR HEMOGLOBIN 27 pg (27.0-31.0); MEAN CORPUSCULAR HGB CONC 32 g/dl (33.0-37.0); PLATELET COUNT 58 K/mm3 (130-400); RED BLOOD COUNT 4.63 M/mm3 (4.20-5.60); REDCELL DISTRIBUTION WIDTH-CV 16.9 % (11.5-14.5)
[2020-01-03 11:09] LABS: ALBUMIN 4.2 gm/dL (3.5-5.0); BILIRUBIN,TOTAL 0.5 mg/dL (0.0-1.0); CALCIUM 9.4 mg/dL (8.4-10.2); CREATININE, serum 0.89 (0.66-1.25); POTASSIUM 3.5 mmol/L (3.4-5.0)
[2020-01-03 11:21] LABS: BAND 2 % (0-10); BASOPHIL 1 % (0-2); LYMPHOCYTE 35 % (20.0-51.0); NEUTROPHILS 58 % (42.0-75.2); OVALOCYTES 2+; PLATELET ESTIMATE DECREASED (NORMAL)
== END | disposition home or self-care (01) ==
LOC: EUO
PROVIDERS: Internal Medicine; Internal Medicine Medical Oncology
DX: C92.00 Acute myeloblastic leukemia, not having achieved remission (principal)

== ENCOUNTER 2020-04-03 10:00 | Outpatient (RCR) | payer OTHER ==
--- NOTE | 2020-01-07 10:40 | NUR ---
here for cares. With sterile technique right upper arm PICC dressing change done with insertion site cleansed with ChloraPrep 1, chlorhexidine impregnated disc applied, skin prep, StatLock, and Tegaderm applied. No signs or symptoms of IV complications noted. No concerns voiced. Arm wrapped with Russ to protect catheter. Patient to return to express unit for cares. Patient voiced understanding of instructions.
[2020-01-07 10:50] VITALS: BP 129/69; PULSE 67; TEMP 98.1
[2020-01-07 11:00] LABS: HEMATOCRIT 37.8 % (42.0-52.0); HEMOGLOBIN 12.2 g/dl (13.5-18.0); MEAN CELL VOLUME 82 fl (80.0-100.0); MEAN CORPUSCULAR HEMOGLOBIN 27 pg (27.0-31.0); MEAN CORPUSCULAR HGB CONC 32 g/dl (33.0-37.0); PLATELET COUNT 53 K/mm3 (130-400); RED BLOOD COUNT 4.59 M/mm3 (4.20-5.60); REDCELL DISTRIBUTION WIDTH-CV 16.6 % (11.5-14.5)
[2020-01-07 11:01] LABS: ALBUMIN 4.2 gm/dL (3.5-5.0); BILIRUBIN,TOTAL 0.5 mg/dL (0.0-1.0); CALCIUM 9.7 mg/dL (8.4-10.2); CREATININE, serum 1.09 (0.66-1.25); POTASSIUM 4.1 mmol/L (3.4-5.0)
[2020-01-07 11:40] LABS: EOSINOPHIL 1 % (0-4); LYMPHOCYTE 34 % (20.0-51.0); NEUTROPHILS 56 % (42.0-75.2); PLATELET ESTIMATE DECREASED (NORMAL)
--- NOTE | 2020-01-09 13:29 | NUR ---
LEFT MESSAGE ON VOICEMAIL IN REGARDS TO ID SCREENING AND APPT TIME TOMORROW.
[2020-01-10 10:00] VITALS: BP 137/71; PULSE 75; TEMP 98
[2020-01-10 10:42] LABS: HEMOGLOBIN 12.1 g/dl (13.5-18.0); MEAN CELL VOLUME 83 fl (80.0-100.0); MEAN CORPUSCULAR HEMOGLOBIN 27 pg (27.0-31.0); MEAN CORPUSCULAR HGB CONC 33 g/dl (33.0-37.0); PLATELET COUNT 51 K/mm3 (130-400); RED BLOOD COUNT 4.48 M/mm3 (4.20-5.60); REDCELL DISTRIBUTION WIDTH-CV 16.6 % (11.5-14.5)
[2020-01-10 11:06] LABS: ALBUMIN 4.4 gm/dL (3.5-5.0); BILIRUBIN,TOTAL 0.7 mg/dL (0.0-1.0); CREATININE, serum 0.76 (0.66-1.25); POTASSIUM 4.1 mmol/L (3.4-5.0); TOTAL PROTEIN 7.5 gm/dL (6.4-8.2)
[2020-01-10 12:01] LABS: ANISOCYTOSIS 1+; BAND 4 % (0-10); EOSINOPHIL 1 % (0-4); HYPOCHROMIA 2+; LYMPHOCYTE 14 % (20.0-51.0); MICROCYTOSIS 1+; NEUTROPHILS 78 % (42.0-75.2); PLATELET ESTIMATE DECREASED (NORMAL); POIKILOCYTOSIS 1+
[2020-01-14 10:45] LABS: HEMATOCRIT 38.8 % (42.0-52.0); HEMOGLOBIN 12.6 g/dl (13.5-18.0); MEAN CELL VOLUME 83 fl (80.0-100.0); MEAN CORPUSCULAR HEMOGLOBIN 27 pg (27.0-31.0); MEAN CORPUSCULAR HGB CONC 33 g/dl (33.0-37.0); RED BLOOD COUNT 4.67 M/mm3 (4.20-5.60); REDCELL DISTRIBUTION WIDTH-CV 15.9 % (11.5-14.5)
[2020-01-14 10:52] LABS: PLATELET COUNT 45 K/mm3 (130-400)
[2020-01-14 11:02] LABS: ALBUMIN 3.9 gm/dL (3.5-5.0); BILIRUBIN,TOTAL 0.9 mg/dL (0.0-1.0); CALCIUM 9.1 mg/dL (8.4-10.2); CREATININE, serum 0.84 (0.66-1.25); POTASSIUM 3.2 mmol/L (3.4-5.0); TOTAL PROTEIN 6.7 gm/dL (6.4-8.2)
[2020-01-14 11:08] VITALS: BP 118/71; PULSE 72; TEMP 98.3
[2020-01-14 12:50] LABS: LYMPHOCYTE 24 % (20.0-51.0); NEUTROPHILS 73 % (42.0-75.2)
[2020-01-14 12:51] LABS: ANISOCYTOSIS 1+; PLATELET ESTIMATE DECREASED (NORMAL)
[2020-01-14 12:53] LABS: MICROCYTOSIS 1+; TEAR DROP CELLS 1+
[2020-01-17 10:29] VITALS: BP 106/57; PULSE 64; TEMP 98.3
[2020-01-17 10:42] LABS: HEMOGLOBIN 11.9 g/dl (13.5-18.0); MEAN CELL VOLUME 82 fl (80.0-100.0); MEAN CORPUSCULAR HEMOGLOBIN 27 pg (27.0-31.0); MEAN CORPUSCULAR HGB CONC 32 g/dl (33.0-37.0); RED BLOOD COUNT 4.49 M/mm3 (4.20-5.60); REDCELL DISTRIBUTION WIDTH-CV 15.5 % (11.5-14.5)
[2020-01-17 10:43] LABS: ALBUMIN 3.8 gm/dL (3.5-5.0); BILIRUBIN,TOTAL 0.8 mg/dL (0.0-1.0); CALCIUM 9.3 mg/dL (8.4-10.2); CREATININE, serum 0.82 (0.66-1.25)
[2020-01-17 10:45] LABS: HEMATOCRIT 36.9 % (42.0-52.0)
[2020-01-17 10:46] LABS: PLATELET COUNT 23 K/mm3 (130-400)
[2020-01-17 11:31] LABS: EOSINOPHIL 2 % (0-4); LYMPHOCYTE 34 % (20.0-51.0); NEUTROPHILS 63 % (42.0-75.2)
[2020-01-17 11:32] LABS: ANISOCYTOSIS 1+; PLATELET ESTIMATE DECREASED (NORMAL)
[2020-01-17 11:33] LABS: TARGET CELLS 1+
[2020-01-18 13:17] LABS: HEMOGLOBIN 11.6 g/dl (13.5-18.0); MEAN CELL VOLUME 83 fl (80.0-100.0); MEAN CORPUSCULAR HEMOGLOBIN 27 pg (27.0-31.0); MEAN CORPUSCULAR HGB CONC 32 g/dl (33.0-37.0); RED BLOOD COUNT 4.34 M/mm3 (4.20-5.60); REDCELL DISTRIBUTION WIDTH-CV 15.2 % (11.5-14.5)
[2020-01-18 13:23] LABS: PLATELET COUNT 16 K/mm3 (130-400)
[2020-01-18 13:47] LABS: BAND 2 % (0-10); EOSINOPHIL 2 % (0-4); LYMPHOCYTE 37 % (20.0-51.0); NEUTROPHILS 57 % (42.0-75.2)
[2020-01-18 13:49] LABS: ANISOCYTOSIS 1+; OVALOCYTES 1+; PLATELET ESTIMATE DECREASED (NORMAL)
[2020-01-19 15:00] VITALS: BP 137/71; PULSE 58; TEMP 98
--- NOTE | 2020-01-19 15:00 | NUR ---
Pt platelet transfusion started at 60 ml/hr to DENILSON PICC w/o complications. Pt VSS, pt denies any SOB, nausea, dizziness or pain. Consent signed. All questions answered. This nurse remained at bedside w/ pt for first 15 minutes.
[2020-01-19 15:15] VITALS: BP 119/65; PULSE 62
[2020-01-19 15:30] VITALS: BP 125/75; PULSE 62
--- NOTE | 2020-01-19 15:30 | NUR ---
transfusion still infusing w/o complications. Rate increased to 120 ml/hr w/o complications. Pt tolerating well, VSS.
[2020-01-19 16:00] VITALS: BP 114/72; PULSE 60
--- NOTE | 2020-01-19 16:15 | NUR ---
Pt VSS, tolerating transfusion well. No complications. Rate increased to 175 ml/hr, no complications. pt resting in bed.
[2020-01-19 17:00] VITALS: BP 109/68; PULSE 55
--- NOTE | 2020-01-19 17:51 | NUR ---
Pt transfusion completed, pt tolerated well. No further needs. pt escorted out by nurse aide to ER entrance where ride was awaiting.
[2020-01-21 10:21] VITALS: BP 160/74; PULSE 66; TEMP 97.2
--- NOTE | 2020-01-21 10:30 | NUR ---
here for cares. With sterile technique right upper arm PICC dressing change done with insertion site cleansed with ChloraPrep 1, chlorhexidine impregnated disc applied, skin prep, StatLock, and Tegaderm applied. Arm wrapped with Russ to protect catheter. No signs or symptoms of IV complications noted. No concerns voiced. Patient return to express unit as scheduled. Patient voiced understanding of instructions.
[2020-01-21 10:45] LABS: HEMOGLOBIN 10.8 g/dl (13.5-18.0); MEAN CELL VOLUME 83 fl (80.0-100.0); MEAN CORPUSCULAR HEMOGLOBIN 27 pg (27.0-31.0); MEAN CORPUSCULAR HGB CONC 32 g/dl (33.0-37.0); RED BLOOD COUNT 4.07 M/mm3 (4.20-5.60); REDCELL DISTRIBUTION WIDTH-CV 14.6 % (11.5-14.5)
[2020-01-21 10:57] LABS: HEMATOCRIT 33.7 % (42.0-52.0); PLATELET COUNT 16 K/mm3 (130-400)
[2020-01-21 11:03] LABS: ALBUMIN 3.9 gm/dL (3.5-5.0); BILIRUBIN,TOTAL 0.6 mg/dL (0.0-1.0); CALCIUM 9.4 mg/dL (8.4-10.2); CREATININE, serum 0.74 (0.66-1.25); POTASSIUM 3.6 mmol/L (3.4-5.0); TOTAL PROTEIN 6.9 gm/dL (6.4-8.2)
[2020-01-21 13:46] LABS: NEUTROPHILS 27 % (42.0-75.2)
[2020-01-21 14:11] LABS: LYMPHOCYTE 73 % (20.0-51.0); PLATELET ESTIMATE DECREASED (NORMAL)
[2020-01-21 14:12] LABS: TARGET CELLS 1+
[2020-01-21 14:13] LABS: ANISOCYTOSIS 1+
[2020-01-21 14:20] LABS: OVALOCYTES 2+; SCHISTOCYTES 1+
[2020-01-21 14:21] LABS: HYPOCHROMIA 1+
[2020-01-22 08:35] LABS: PATHOLOGY DIFF REVIEW OK
[2020-01-22 10:10] VITALS: BP 168/82; PULSE 72; TEMP 97.4
[2020-01-22 10:31] LABS: HEMOGLOBIN 10.5 g/dl (13.5-18.0); MEAN CELL VOLUME 83 fl (80.0-100.0); MEAN CORPUSCULAR HEMOGLOBIN 27 pg (27.0-31.0); MEAN CORPUSCULAR HGB CONC 32 g/dl (33.0-37.0); RED BLOOD COUNT 3.95 M/mm3 (4.20-5.60); REDCELL DISTRIBUTION WIDTH-CV 14.6 % (11.5-14.5)
[2020-01-22 10:32] LABS: HEMATOCRIT 32.7 % (42.0-52.0)
[2020-01-22 10:34] LABS: PLATELET COUNT 11 K/mm3 (130-400)
[2020-01-22 11:51] LABS: BASOPHIL 1 % (0-2); EOSINOPHIL 2 % (0-4)
[2020-01-22 11:54] LABS: LYMPHOCYTE 69 % (20.0-51.0)
[2020-01-22 11:57] LABS: NEUTROPHILS 28 % (42.0-75.2)
[2020-01-22 12:00] LABS: MICROCYTOSIS 1+
[2020-01-22 12:04] LABS: SCHISTOCYTES 1+; TARGET CELLS 2+
[2020-01-22 12:35] LABS: PLATELET ESTIMATE DECREASED (NORMAL)
[2020-01-23 13:00] VITALS: BP 126/78; PULSE 66; TEMP 98
[2020-01-23 13:22] VITALS: BP 120/77; PULSE 71; TEMP 98.1
[2020-01-23 13:37] VITALS: BP 118/72; PULSE 75; TEMP 98.1
[2020-01-23 14:07] VITALS: BP 134/74; PULSE 77; TEMP 98.1
[2020-01-23 14:30] VITALS: BP 128/74; PULSE 70; TEMP 98
[2020-01-24 10:12] VITALS: BP 132/84; PULSE 62; TEMP 97.9
[2020-01-24 10:34] LABS: ALBUMIN 3.8 gm/dL (3.5-5.0); BILIRUBIN,TOTAL 0.5 mg/dL (0.0-1.0); CALCIUM 9.3 mg/dL (8.4-10.2); CREATININE, serum 0.84 (0.66-1.25); MEAN CELL VOLUME 83 fl (80.0-100.0); MEAN CORPUSCULAR HGB CONC 32 g/dl (33.0-37.0); MEAN PLATELET VOLUME 9.9 fl (7.4-10.4); POTASSIUM 3.7 mmol/L (3.4-5.0); RED BLOOD COUNT 3.69 M/mm3 (4.20-5.60); REDCELL DISTRIBUTION WIDTH-CV 14.3 % (11.5-14.5); TOTAL PROTEIN 6.6 gm/dL (6.4-8.2)
[2020-01-24 11:07] LABS: HEMATOCRIT 30.7 % (42.0-52.0); HEMOGLOBIN 9.9 g/dl (13.5-18.0); MEAN CORPUSCULAR HEMOGLOBIN 27 pg (27.0-31.0)
[2020-01-24 11:08] LABS: PLATELET COUNT 47 K/mm3 (130-400)
[2020-01-24 11:20] LABS: EOSINOPHIL 1 % (0-4); NEUTROPHILS 11 % (42.0-75.2)
[2020-01-24 11:21] LABS: LYMPHOCYTE 88 % (20.0-51.0)
[2020-01-24 11:22] LABS: HYPOCHROMIA 2+
[2020-01-24 11:23] LABS: OVALOCYTES 1+; PLATELET ESTIMATE DECREASED (NORMAL)
[2020-01-25 10:30] VITALS: BP 130/83; PULSE 68; TEMP 98
[2020-01-25 10:32] LABS: MEAN CELL VOLUME 83 fl (80.0-100.0); MEAN CORPUSCULAR HGB CONC 32 g/dl (33.0-37.0); MEAN PLATELET VOLUME 8.1 fl (7.4-10.4); RED BLOOD COUNT 3.63 M/mm3 (4.20-5.60); REDCELL DISTRIBUTION WIDTH-CV 14.2 % (11.5-14.5)
[2020-01-25 10:47] LABS: HEMATOCRIT 30.1 % (42.0-52.0); HEMOGLOBIN 9.7 g/dl (13.5-18.0); MEAN CORPUSCULAR HEMOGLOBIN 27 pg (27.0-31.0)
[2020-01-25 10:48] LABS: PLATELET COUNT 34 K/mm3 (130-400)
[2020-01-25 11:10] LABS: BAND 1 % (0-10); LYMPHOCYTE 96 % (20.0-51.0); NEUTROPHILS 3 % (42.0-75.2)
[2020-01-25 11:15] LABS: PLATELET ESTIMATE DECREASED (NORMAL)
[2020-01-25 11:16] LABS: OVALOCYTES 1+; TARGET CELLS 1+
[2020-01-25 11:17] LABS: HYPOCHROMIA 2+; SCHISTOCYTES 1+
[2020-01-25 11:18] LABS: ANISOCYTOSIS 1+
[2020-01-27 09:13] LABS: MEAN CELL VOLUME 83 fl (80.0-100.0); MEAN CORPUSCULAR HGB CONC 32 g/dl (33.0-37.0); RED BLOOD COUNT 3.63 M/mm3 (4.20-5.60); REDCELL DISTRIBUTION WIDTH-CV 13.8 % (11.5-14.5)
[2020-01-27 09:16] LABS: HEMOGLOBIN 9.7 g/dl (13.5-18.0); MEAN CORPUSCULAR HEMOGLOBIN 27 pg (27.0-31.0); PLATELET COUNT 15 K/mm3 (130-400)
--- NOTE | 2020-01-27 09:28 | NUR ---
CRITICAL LAB CALLED TO THIS RN FROM [facility]. WBC=1.6 PLT=[address] THIS RN WILL CALL [address] RICHMOND WITH RESULTS.
[2020-01-27 10:42] LABS: HYPOCHROMIA 1+; LYMPHOCYTE 98 % (20.0-51.0); OVALOCYTES 1+; PLATELET ESTIMATE DECREASED (NORMAL)
--- NOTE | 2020-01-28 13:00 | NUR ---
Here for cares. with sterile technique right upper arm PICC dressing change done with insertion site cleansed with chloraprep x 1, chlorhexidine impregnated disk applied, skin prep, stat lock, and tegaderm applied. no signs or symptoms of IV complications noted. no concerns voiced. to return as scheduled to . voiced understanding of instructions.
[2020-01-28 13:34] LABS: ALBUMIN 4.1 gm/dL (3.5-5.0); BILIRUBIN,TOTAL 0.5 mg/dL (0.0-1.0); CALCIUM 9.8 mg/dL (8.4-10.2); CREATININE, serum 0.98 (0.66-1.25); TOTAL PROTEIN 6.9 gm/dL (6.4-8.2)
[2020-01-28 14:30] VITALS: BP 133/80; PULSE 66; TEMP 97.3
[2020-01-28 14:45] VITALS: BP 155/93; PULSE 60; TEMP 97.9
[2020-01-28 15:00] VITALS: BP 146/80; PULSE 60; TEMP 98
[2020-01-31 10:23] VITALS: BP 119/70; PULSE 60; TEMP 98.3
[2020-01-31 10:41] LABS: MEAN CELL VOLUME 83 fl (80.0-100.0); MEAN CORPUSCULAR HGB CONC 33 g/dl (33.0-37.0); RED BLOOD COUNT 3.39 M/mm3 (4.20-5.60); REDCELL DISTRIBUTION WIDTH-CV 13.7 % (11.5-14.5)
[2020-01-31 10:48] LABS: ALBUMIN 3.9 gm/dL (3.5-5.0); BILIRUBIN,TOTAL 0.4 mg/dL (0.0-1.0); CALCIUM 9.5 mg/dL (8.4-10.2); CREATININE, serum 0.99 (0.66-1.25); TOTAL PROTEIN 6.8 gm/dL (6.4-8.2)
[2020-01-31 10:52] LABS: HEMOGLOBIN 9.1 g/dl (13.5-18.0); MEAN CORPUSCULAR HEMOGLOBIN 27 pg (27.0-31.0); PLATELET COUNT 20 K/mm3 (130-400)
[2020-01-31 11:27] LABS: LYMPHOCYTE 100 % (20.0-51.0); PLATELET ESTIMATE DECREASED (NORMAL)
[2020-01-31 11:28] LABS: HYPOCHROMIA 1+; SPHEROCYTE 1+
[2020-01-31 11:31] LABS: SCHISTOCYTES 1+
[2020-02-01 10:15] VITALS: BP 145/95; PULSE 80; TEMP 98.4
[2020-02-01 10:20] LABS: MEAN CELL VOLUME 83 fl (80.0-100.0); MEAN CORPUSCULAR HGB CONC 32 g/dl (33.0-37.0); RED BLOOD COUNT 3.41 M/mm3 (4.20-5.60); REDCELL DISTRIBUTION WIDTH-CV 13.8 % (11.5-14.5)
[2020-02-01 10:29] LABS: HEMATOCRIT 28.2 % (42.0-52.0); HEMOGLOBIN 9.1 g/dl (13.5-18.0); MEAN CORPUSCULAR HEMOGLOBIN 27 pg (27.0-31.0); PLATELET COUNT 15 K/mm3 (130-400)
[2020-02-01 12:24] LABS: LYMPHOCYTE 99 % (20.0-51.0); NEUTROPHILS 1 % (42.0-75.2); PLATELET ESTIMATE DECREASED (NORMAL)
[2020-02-01 12:25] LABS: SCHISTOCYTES 1+; SPHEROCYTE 1+
[2020-02-01 12:26] LABS: ANISOCYTOSIS 1+
[2020-02-02] VITALS (7 sets, daily range): BP systolic 133–146; BP diastolic 80–100; PULSE 51–66; TEMP 97.6–97.9
--- NOTE | 2020-02-02 16:55 | NUR ---
PATIENT PRESENTED TO HOSPITAL FOR OUTPATIENT PLATELET TRANSFUSION ORDERED BY ONCOLOGIST DR RICHMOND. SEE EMAR FOR MEDICATIONS ADMINISTERED ORDERED. PATIENT AMBULATED ONTO UNIT INDEPENDENTLY. DENIES C/O PAIN OR DISCOMFORT. SEE FLOW SHEET FOR FVS OBTAINED WNL. LUNG SOUNDS CTA THROUGHOUT TO ASCULTATION. TRANSFUSION COMPLETED PER HOSPITAL POLICY WITHOUYT COMPLICATIONS. TRIPLE LUMEN PICC TO RIGHT UPPER ARM USED WITHOUT DIFFICULTY. DISCHARGED TO HOME @ 1600. POST TRANSFUSION INSTRUCTIONS REVIEWED WITH PATIENT. NO QUESTIONS OR CONCERNS AFTER REVIEW.
--- NOTE | 2020-02-05 10:30 | NUR ---
here for cares. With sterile technique right upper arm PICC dressing change done with insertion site cleansed with ChloraPrep 1, chlorhexidine impregnated disc applied, skin prep, StatLock, and Tegaderm applied. No signs or symptoms of IV complications noted. No concerns voiced. Patient to return as scheduled as to the express unit for cares. Patient voiced understanding of instructions.
[2020-02-05 10:58] LABS: MEAN CELL VOLUME 83 fl (80.0-100.0); MEAN CORPUSCULAR HGB CONC 33 g/dl (33.0-37.0); RED BLOOD COUNT 3.04 M/mm3 (4.20-5.60); REDCELL DISTRIBUTION WIDTH-CV 13.6 % (11.5-14.5)
[2020-02-05 10:59] LABS: ALBUMIN 3.8 gm/dL (3.5-5.0); BILIRUBIN,TOTAL 0.4 mg/dL (0.0-1.0); CALCIUM 9.4 mg/dL (8.4-10.2); CREATININE, serum 1.1 (0.66-1.25); POTASSIUM 4.2 mmol/L (3.4-5.0); TOTAL PROTEIN 6.7 gm/dL (6.4-8.2)
[2020-02-05 11:13] LABS: HEMATOCRIT 25.2 % (42.0-52.0); HEMOGLOBIN 8.2 g/dl (13.5-18.0); MEAN CORPUSCULAR HEMOGLOBIN 27 pg (27.0-31.0); PLATELET COUNT 40 K/mm3 (130-400)
[2020-02-05 11:55] VITALS: BP 124/80; PULSE 58; TEMP 98.1
[2020-02-05 12:12] LABS: HYPOCHROMIA 2+; LYMPHOCYTE 100 % (20.0-51.0); PLATELET ESTIMATE DECREASED (NORMAL)
[2020-02-05 12:13] LABS: OVALOCYTES 2+; SCHISTOCYTES 1+
[2020-02-07 10:37] VITALS: BP 138/66; PULSE 67; TEMP 98
[2020-02-07 10:45] LABS: HEMOGLOBIN 8.4 g/dl (13.5-18.0); MEAN CELL VOLUME 82 fl (80.0-100.0); MEAN CORPUSCULAR HEMOGLOBIN 27 pg (27.0-31.0); MEAN CORPUSCULAR HGB CONC 33 g/dl (33.0-37.0); RED BLOOD COUNT 3.11 M/mm3 (4.20-5.60); REDCELL DISTRIBUTION WIDTH-CV 13.4 % (11.5-14.5)
[2020-02-07 10:46] LABS: HEMATOCRIT 25.6 % (42.0-52.0)
[2020-02-07 10:48] LABS: PLATELET COUNT 20 K/mm3 (130-400)
[2020-02-07 10:53] LABS: ALBUMIN 3.9 gm/dL (3.5-5.0); BILIRUBIN,TOTAL 0.4 mg/dL (0.0-1.0); CALCIUM 9.7 mg/dL (8.4-10.2); CREATININE, serum 0.89 (0.66-1.25); POTASSIUM 3.9 mmol/L (3.4-5.0); TOTAL PROTEIN 6.9 gm/dL (6.4-8.2)
[2020-02-07 11:10] LABS: LYMPHOCYTE 99 % (20.0-51.0); OVALOCYTES 1+; SCHISTOCYTES 1+
[2020-02-07 11:11] LABS: PLATELET ESTIMATE DECREASED (NORMAL)
[2020-02-08 10:34] VITALS: BP 154/82; PULSE 80; TEMP 98.6
[2020-02-08 10:39] LABS: MEAN CELL VOLUME 82 fl (80.0-100.0); MEAN CORPUSCULAR HGB CONC 33 g/dl (33.0-37.0); RED BLOOD COUNT 3.03 M/mm3 (4.20-5.60); REDCELL DISTRIBUTION WIDTH-CV 13.2 % (11.5-14.5)
[2020-02-08 10:45] LABS: HEMATOCRIT 24.8 % (42.0-52.0); HEMOGLOBIN 8.1 g/dl (13.5-18.0); MEAN CORPUSCULAR HEMOGLOBIN 27 pg (27.0-31.0); PLATELET COUNT 13 K/mm3 (130-400)
[2020-02-08 11:00] LABS: LYMPHOCYTE 99 % (20.0-51.0); OVALOCYTES 1+; PLATELET ESTIMATE DECREASED (NORMAL); SCHISTOCYTES 1+
[2020-02-09 13:49] VITALS: BP 122/80; PULSE 59; TEMP 98.3
--- NOTE | 2020-02-09 14:10 | NUR ---
PATIENT HERE TODAY FOR PLATELETS X1 UNIT. HE STATES THAT HE FEELS GOOD. INFUSION STARTED
[2020-02-09 14:22] VITALS: BP 140/74; PULSE 57; TEMP 98.1
[2020-02-09 14:37] VITALS: BP 121/71; PULSE 52; TEMP 97.9
[2020-02-09 15:30] VITALS: BP 111/66; PULSE 54; TEMP 97.7
--- NOTE | 2020-02-09 16:07 | NUR ---
PATIENT DISCHARGED TO HOME VIA PEDIS. HE DECLINES THE WHEELCHAIR.
--- NOTE | 2020-02-11 10:15 | NUR ---
here for cares. With sterile technique right upper arm PICC dressing change done with insertion site cleansed with ChloraPrep 1, chlorhexidine impregnated disc applied, skin prep, StatLock, and Tegaderm applied. No signs or symptoms of IV complications noted. No concerns voiced. Patient to return to express unit is scheduled for cares. Patient voiced understanding of instructions.
[2020-02-11 10:49] VITALS: BP 100/61; PULSE 58; TEMP 98.5
[2020-02-11 10:57] LABS: MEAN CELL VOLUME 81 fl (80.0-100.0); MEAN CORPUSCULAR HGB CONC 32 g/dl (33.0-37.0); RED BLOOD COUNT 2.88 M/mm3 (4.20-5.60); REDCELL DISTRIBUTION WIDTH-CV 13.2 % (11.5-14.5)
[2020-02-11 11:00] LABS: HEMATOCRIT 23.3 % (42.0-52.0); HEMOGLOBIN 7.5 g/dl (13.5-18.0); MEAN CORPUSCULAR HEMOGLOBIN 26 pg (27.0-31.0); PLATELET COUNT 32 K/mm3 (130-400)
[2020-02-11 11:21] LABS: ALBUMIN 3.8 gm/dL (3.5-5.0); BILIRUBIN,TOTAL 0.5 mg/dL (0.0-1.0); CALCIUM 9.5 mg/dL (8.4-10.2); CREATININE, serum 0.96 (0.66-1.25); POTASSIUM 3.5 mmol/L (3.4-5.0); TOTAL PROTEIN 6.8 gm/dL (6.4-8.2)
[2020-02-11 11:53] LABS: LYMPHOCYTE 98 % (20.0-51.0); NEUTROPHILS 2 % (42.0-75.2); OVALOCYTES 1+; PLATELET ESTIMATE DECREASED (NORMAL); SCHISTOCYTES 2+
[2020-02-14 10:31] VITALS: BP 113/78; PULSE 76; TEMP 98
[2020-02-14 10:42] LABS: ALBUMIN 3.9 gm/dL (3.5-5.0); BILIRUBIN,TOTAL 0.5 mg/dL (0.0-1.0); CALCIUM 9.4 mg/dL (8.4-10.2); CREATININE, serum 1.18 (0.66-1.25); POTASSIUM 3.7 mmol/L (3.4-5.0)
[2020-02-14 10:50] LABS: MEAN CELL VOLUME 82 fl (80.0-100.0); MEAN CORPUSCULAR HGB CONC 33 g/dl (33.0-37.0)
[2020-02-14 10:57] LABS: HEMOGLOBIN 7.3 g/dl (13.5-18.0); MEAN CORPUSCULAR HEMOGLOBIN 27 pg (27.0-31.0); PLATELET COUNT 13 K/mm3 (130-400)
[2020-02-14 12:26] LABS: LYMPHOCYTE 96 % (20.0-51.0); NEUTROPHILS 3 % (42.0-75.2); PLATELET ESTIMATE DECREASED (NORMAL)
[2020-02-14 12:27] LABS: OVALOCYTES 1+
[2020-02-15] VITALS (9 sets, daily range): BP systolic 119–138; BP diastolic 69–82; PULSE 49–64; TEMP 97.6–98.1
--- NOTE | 2020-02-18 10:15 | NUR ---
here for cares. With sterile technique right upper arm PICC dressing change done with insertion site cleansed with ChloraPrep 1, chlorhexidine impregnated disc applied, skin prep, StatLock, and Tegaderm applied. No signs or symptoms of IV complications noted. No concerns voiced. Arm wrapped with Russ to protect catheter. Patient to return to the express unit for cares is scheduled. Patient voiced understanding of instructions.
[2020-02-18 10:26] LABS: MEAN CELL VOLUME 83 fl (80.0-100.0); MEAN CORPUSCULAR HGB CONC 33 g/dl (33.0-37.0); RED BLOOD COUNT 2.94 M/mm3 (4.20-5.60); REDCELL DISTRIBUTION WIDTH-CV 13.2 % (11.5-14.5)
[2020-02-18 10:32] LABS: HEMATOCRIT 24.3 % (42.0-52.0); MEAN CORPUSCULAR HEMOGLOBIN 27 pg (27.0-31.0); PLATELET COUNT 17 K/mm3 (130-400)
[2020-02-18 10:33] LABS: BILIRUBIN,TOTAL 0.4 mg/dL (0.0-1.0); CALCIUM 9.8 mg/dL (8.4-10.2); CREATININE, serum 1.17 (0.66-1.25); POTASSIUM 3.6 mmol/L (3.4-5.0)
[2020-02-18 11:37] VITALS: BP 137/86; PULSE 69; TEMP 97.9
[2020-02-18 12:22] LABS: LYMPHOCYTE 73 % (20.0-51.0); NEUTROPHILS 6 % (42.0-75.2)
[2020-02-18 12:26] LABS: HYPOCHROMIA 1+; MICROCYTOSIS 1+; OVALOCYTES 1+; PLATELET ESTIMATE DECREASED (NORMAL)
[2020-02-20 15:01] LABS: MEAN CELL VOLUME 82 fl (80.0-100.0); MEAN CORPUSCULAR HGB CONC 33 g/dl (33.0-37.0); RED BLOOD COUNT 3.02 M/mm3 (4.20-5.60); REDCELL DISTRIBUTION WIDTH-CV 13.4 % (11.5-14.5)
[2020-02-20 15:05] LABS: HEMATOCRIT 24.7 % (42.0-52.0); HEMOGLOBIN 8.2 g/dl (13.5-18.0); MEAN CORPUSCULAR HEMOGLOBIN 27 pg (27.0-31.0); PLATELET COUNT 13 K/mm3 (130-400)
[2020-02-20 15:31] VITALS: BP 123/77; PULSE 62; TEMP 97.7
[2020-02-20 15:50] LABS: BAND 2 % (0-10); LYMPHOCYTE 67 % (20.0-51.0); METAMYELOCYTE 1 % (0-0); MYELOCYTE 2 % (0-0); NEUTROPHILS 19 % (42.0-75.2); PLATELET ESTIMATE NORMAL (NORMAL)
[2020-02-21 08:22] LABS: PATHOLOGY DIFF REVIEW OK
[2020-02-22] VITALS (8 sets, daily range): BP systolic 111–141; BP diastolic 70–82; PULSE 52–65; TEMP 97.4–97.6
[2020-02-25 10:26] LABS: MEAN CELL VOLUME 82 fl (80.0-100.0); MEAN CORPUSCULAR HGB CONC 33 g/dl (33.0-37.0); MEAN PLATELET VOLUME 9.6 fl (7.4-10.4); PLATELET COUNT 57 K/mm3 (130-400); RED BLOOD COUNT 2.73 M/mm3 (4.20-5.60); REDCELL DISTRIBUTION WIDTH-CV 14.1 % (11.5-14.5)
[2020-02-25 10:27] LABS: HEMATOCRIT 22.4 % (42.0-52.0); HEMOGLOBIN 7.4 g/dl (13.5-18.0); MEAN CORPUSCULAR HEMOGLOBIN 27 pg (27.0-31.0)
[2020-02-25 10:45] LABS: ALBUMIN 3.9 gm/dL (3.5-5.0); BILIRUBIN,TOTAL 0.4 mg/dL (0.0-1.0); CALCIUM 9.5 mg/dL (8.4-10.2); CREATININE, serum 0.99 (0.66-1.25); POTASSIUM 3.6 mmol/L (3.4-5.0); TOTAL PROTEIN 6.7 gm/dL (6.4-8.2)
--- NOTE | 2020-02-25 10:45 | NUR ---
here for cares. With sterile technique right upper arm PICC dressing change done with insertion site cleansed with ChloraPrep 1, chlorhexidine impregnated disc applied, skin prep, StatLock, and Tegaderm applied. No signs or symptoms of IV complications noted. No concerns voiced. Arm wrapped with Russ to protect catheter. Patient to return as scheduled for cares. Patient voiced understanding of instructions.
[2020-02-25 11:01] VITALS: BP 121/81; PULSE 68; TEMP 98
[2020-02-25 11:35] LABS: LYMPHOCYTE 75 % (20.0-51.0); NEUTROPHILS 22 % (42.0-75.2); PLATELET ESTIMATE DECREASED (NORMAL)
[2020-02-25 11:36] LABS: HYPOCHROMIA 1+; POLYCHROMASIA 1+
[2020-02-28 10:28] LABS: MEAN CELL VOLUME 82 fl (80.0-100.0); MEAN CORPUSCULAR HGB CONC 32 g/dl (33.0-37.0); RED BLOOD COUNT 2.78 M/mm3 (4.20-5.60); REDCELL DISTRIBUTION WIDTH-CV 14.1 % (11.5-14.5)
[2020-02-28 10:35] LABS: HEMATOCRIT 22.9 % (42.0-52.0); HEMOGLOBIN 7.4 g/dl (13.5-18.0); MEAN CORPUSCULAR HEMOGLOBIN 27 pg (27.0-31.0); PLATELET COUNT 30 K/mm3 (130-400)
[2020-02-28 10:47] LABS: ALBUMIN 3.8 gm/dL (3.5-5.0); BILIRUBIN,TOTAL 0.4 mg/dL (0.0-1.0); CALCIUM 9.4 mg/dL (8.4-10.2); CREATININE, serum 0.94 (0.66-1.25); POTASSIUM 3.7 mmol/L (3.4-5.0); TOTAL PROTEIN 6.7 gm/dL (6.4-8.2)
[2020-02-28 11:01] VITALS: BP 149/85; PULSE 73; TEMP 98.1
[2020-02-28 12:40] LABS: ANISOCYTOSIS 1+; BAND 1 % (0-10); LYMPHOCYTE 62 % (20.0-51.0); NEUTROPHILS 21 % (42.0-75.2); PLATELET ESTIMATE DECREASED (NORMAL)
[2020-03-03 10:15] VITALS: BP 121/77; PULSE 82; TEMP 98
--- NOTE | 2020-03-03 10:15 | NUR ---
here for cares. With sterile technique right upper arm PICC dressing change done with insertion site cleansed with ChloraPrep 1, chlorhexidine impregnated disc applied, skin prep, StatLock, and Tegaderm applied. No signs or symptoms of IV complications noted. No concerns voiced. Arm wrapped with Russ to protect catheter. Patient to return to express unit as scheduled. Patient voiced understanding of instructions.
[2020-03-03 10:37] LABS: MEAN CELL VOLUME 82 fl (80.0-100.0); MEAN CORPUSCULAR HGB CONC 33 g/dl (33.0-37.0); RED BLOOD COUNT 2.78 M/mm3 (4.20-5.60); REDCELL DISTRIBUTION WIDTH-CV 14.6 % (11.5-14.5)
[2020-03-03 10:41] LABS: HEMOGLOBIN 7.6 g/dl (13.5-18.0); MEAN CORPUSCULAR HEMOGLOBIN 27 pg (27.0-31.0)
[2020-03-03 10:42] LABS: HEMATOCRIT 22.9 % (42.0-52.0); PLATELET COUNT 21 K/mm3 (130-400)
[2020-03-03 10:46] LABS: ALBUMIN 4.1 gm/dL (3.5-5.0); BILIRUBIN,TOTAL 0.4 mg/dL (0.0-1.0); CALCIUM 9.7 mg/dL (8.4-10.2); CREATININE, serum 0.99 (0.66-1.25); POTASSIUM 3.8 mmol/L (3.4-5.0); TOTAL PROTEIN 7.1 gm/dL (6.4-8.2)
[2020-03-03 11:12] LABS: BAND 11 % (0-10); HYPOCHROMIA 2+; LYMPHOCYTE 50 % (20.0-51.0); NEUTROPHILS 37 % (42.0-75.2); OVALOCYTES 2+; PLATELET ESTIMATE DECREASED (NORMAL); POLYCHROMASIA 1+; SCHISTOCYTES 1+
[2020-03-06 10:24] VITALS: BP 132/69; PULSE 69; TEMP 98.5
[2020-03-06 10:35] LABS: MEAN CELL VOLUME 84 fl (80.0-100.0); MEAN CORPUSCULAR HGB CONC 32 g/dl (33.0-37.0); RED BLOOD COUNT 2.67 M/mm3 (4.20-5.60)
[2020-03-06 10:38] LABS: HEMATOCRIT 22.4 % (42.0-52.0); HEMOGLOBIN 7.2 g/dl (13.5-18.0); MEAN CORPUSCULAR HEMOGLOBIN 27 pg (27.0-31.0)
[2020-03-06 10:40] LABS: PLATELET COUNT 26 K/mm3 (130-400)
[2020-03-06 10:42] LABS: ALBUMIN 4.1 gm/dL (3.5-5.0); BILIRUBIN,TOTAL 0.5 mg/dL (0.0-1.0); CALCIUM 9.3 mg/dL (8.4-10.2); CREATININE, serum 0.97 (0.66-1.25); POTASSIUM 3.6 mmol/L (3.4-5.0)
[2020-03-06 11:07] LABS: ANISOCYTOSIS 2+; HYPOCHROMIA 1+; LYMPHOCYTE 40 % (20.0-51.0); NEUTROPHILS 48 % (42.0-75.2); NUCLEATED RED BLOOD CELL 1 (0-6); OVALOCYTES 1+; PLATELET ESTIMATE DECREASED (NORMAL)
[2020-03-06 11:08] LABS: POIKILOCYTOSIS 1+; SCHISTOCYTES 1+
[2020-03-07] VITALS (10 sets, daily range): BP systolic 122–138; BP diastolic 67–82; PULSE 46–82; TEMP 97.7–97.8
--- NOTE | 2020-03-10 10:00 | NUR ---
Here for cares. with sterile technique right upper arm PICC dressing change done with insertion site cleansed with chloraprep x 1, chlorhexidine impregnated disk applied, skin prep, stat lock, and tegaderm applied. no signs or symptoms of IV complications noted. no concerns voiced. to continue with cares in [place] as scheduled. voiced understanding of instructions.
[2020-03-10 10:34] LABS: HEMOGLOBIN 10.8 g/dl (13.5-18.0); MEAN CELL VOLUME 86 fl (80.0-100.0); MEAN CORPUSCULAR HEMOGLOBIN 29 pg (27.0-31.0); MEAN CORPUSCULAR HGB CONC 34 g/dl (33.0-37.0); RED BLOOD COUNT 3.76 M/mm3 (4.20-5.60); REDCELL DISTRIBUTION WIDTH-CV 18.3 % (11.5-14.5)
[2020-03-10 10:51] LABS: ALBUMIN 4.2 gm/dL (3.5-5.0); BILIRUBIN,TOTAL 0.7 mg/dL (0.0-1.0); CALCIUM 9.8 mg/dL (8.4-10.2); CREATININE, serum 1.03 (0.66-1.25); POTASSIUM 3.8 mmol/L (3.4-5.0); TOTAL PROTEIN 7.3 gm/dL (6.4-8.2)
[2020-03-10 10:57] LABS: HEMATOCRIT 32.2 % (42.0-52.0)
[2020-03-10 10:58] LABS: PLATELET COUNT 31 K/mm3 (130-400)
[2020-03-10 11:10] LABS: BAND 3 % (0-10); NEUTROPHILS 39 % (42.0-75.2); PLATELET ESTIMATE DECREASED (NORMAL)
[2020-03-10 11:11] LABS: ANISOCYTOSIS 2+; HYPOCHROMIA 1+; OVALOCYTES 1+; SCHISTOCYTES 1+
[2020-03-10 11:12] LABS: LYMPHOCYTE 48 % (20.0-51.0)
[2020-03-10 11:33] VITALS: BP 134/102; PULSE 69; TEMP 97.7
[2020-03-12 10:35] VITALS: BP 128/82; PULSE 77; TEMP 97.7
[2020-03-12 10:38] LABS: HEMOGLOBIN 10.7 g/dl (13.5-18.0); MEAN CELL VOLUME 87 fl (80.0-100.0); MEAN CORPUSCULAR HEMOGLOBIN 29 pg (27.0-31.0); MEAN CORPUSCULAR HGB CONC 33 g/dl (33.0-37.0); RED BLOOD COUNT 3.76 M/mm3 (4.20-5.60); REDCELL DISTRIBUTION WIDTH-CV 19.1 % (11.5-14.5)
[2020-03-12 10:43] LABS: HEMATOCRIT 32.8 % (42.0-52.0)
[2020-03-12 10:45] LABS: PLATELET COUNT 31 K/mm3 (130-400)
[2020-03-12 11:16] LABS: ALBUMIN 4.1 gm/dL (3.5-5.0); BILIRUBIN,TOTAL 0.6 mg/dL (0.0-1.0); CALCIUM 9.6 mg/dL (8.4-10.2); POTASSIUM 3.8 mmol/L (3.4-5.0); TOTAL PROTEIN 7.1 gm/dL (6.4-8.2)
[2020-03-12 11:22] LABS: BAND 2 % (0-10); LYMPHOCYTE 40 % (20.0-51.0); METAMYELOCYTE 1 % (0-0); NEUTROPHILS 50 % (42.0-75.2); NUCLEATED RED BLOOD CELL 1 (0-6); PLATELET ESTIMATE DECREASED (NORMAL)
[2020-03-12 11:23] LABS: ANISOCYTOSIS 2+; OVALOCYTES 2+; SCHISTOCYTES 1+
--- NOTE | 2020-03-17 10:30 | NUR ---
Here for cares. With sterile technique right upper arm PICC dressing change done with insertion site cleansed with ChloraPrep 1, chlorhexidine impregnated disc applied, skin prep, StatLock, and Tegaderm applied. No signs or symptoms of IV complications noted. No concerns voiced. Arm wrapped with Russ to protect catheter. Patient to return for cares as scheduled. Patient voiced understanding of instructions.
[2020-03-17 11:09] LABS: HEMOGLOBIN 10.5 g/dl (13.5-18.0); MEAN CELL VOLUME 89 fl (80.0-100.0); MEAN CORPUSCULAR HEMOGLOBIN 29 pg (27.0-31.0); MEAN CORPUSCULAR HGB CONC 32 g/dl (33.0-37.0); RED BLOOD COUNT 3.69 M/mm3 (4.20-5.60); REDCELL DISTRIBUTION WIDTH-CV 20.3 % (11.5-14.5)
[2020-03-17 11:16] LABS: ALBUMIN 4.1 gm/dL (3.5-5.0); BILIRUBIN,TOTAL 0.6 mg/dL (0.0-1.0); CALCIUM 9.4 mg/dL (8.4-10.2); CREATININE, serum 0.94 (0.66-1.25); POTASSIUM 3.5 mmol/L (3.4-5.0); TOTAL PROTEIN 6.9 gm/dL (6.4-8.2)
[2020-03-17 11:21] LABS: HEMATOCRIT 32.7 % (42.0-52.0)
[2020-03-17 11:23] LABS: PLATELET COUNT 40 K/mm3 (130-400)
[2020-03-17 12:05] VITALS: BP 127/82; PULSE 74; TEMP 97
[2020-03-17 13:38] LABS: ANISOCYTOSIS 3+; LYMPHOCYTE 54 % (20.0-51.0); NEUTROPHILS 36 % (42.0-75.2); POIKILOCYTOSIS 2+; POLYCHROMASIA 1+; TARGET CELLS 1+
[2020-03-17 13:39] LABS: OVALOCYTES 1+; SCHISTOCYTES 1+
[2020-03-20 09:54] VITALS: BP 144/82; PULSE 74; TEMP 97.7
[2020-03-20 10:12] LABS: HEMATOCRIT 32.7 % (42.0-52.0); HEMOGLOBIN 10.6 g/dl (13.5-18.0); MEAN CELL VOLUME 88 fl (80.0-100.0); MEAN CORPUSCULAR HEMOGLOBIN 29 pg (27.0-31.0); MEAN CORPUSCULAR HGB CONC 32 g/dl (33.0-37.0); REDCELL DISTRIBUTION WIDTH-CV 20.6 % (11.5-14.5)
[2020-03-20 10:13] LABS: PLATELET COUNT 45 K/mm3 (130-400)
--- NOTE | 2020-03-20 10:16 | NUR ---
CORBIN Tierney at [facility] office notified of Platelet lab level
[2020-03-20 10:22] LABS: ALBUMIN 4.3 gm/dL (3.5-5.0); BILIRUBIN,TOTAL 0.7 mg/dL (0.0-1.0); CALCIUM 9.6 mg/dL (8.4-10.2); CREATININE, serum 0.97 (0.66-1.25); POTASSIUM 3.5 mmol/L (3.4-5.0); TOTAL PROTEIN 7.2 gm/dL (6.4-8.2)
[2020-03-20 11:10] LABS: ANISOCYTOSIS 2+; BAND 1 % (0-10); EOSINOPHIL 3 % (0-4); HYPOCHROMIA 1+; LYMPHOCYTE 37 % (20.0-51.0); METAMYELOCYTE 1 % (0-0); NEUTROPHILS 38 % (42.0-75.2); NUCLEATED RED BLOOD CELL 1 (0-6); OVALOCYTES 1+; PLATELET ESTIMATE DECREASED (NORMAL); SCHISTOCYTES 1+
--- NOTE | 2020-03-24 10:00 | NUR ---
Here for cares. with sterile technique right upper arm PICC intact with sterile dressing change done with insertion site cleansed with chloraprep x 1, chlorhexidine impregnated disk applied, skin prep, stat lock, and tegaderm applied. no signs or symptoms of IV complications noted. no concerns voiced. re-wrapped with chandler to protect catheter. to return as scheduled for cares. voiced understanding of instructions.
[2020-03-24 10:42] LABS: HEMOGLOBIN 10.3 g/dl (13.5-18.0); MEAN CELL VOLUME 89 fl (80.0-100.0); MEAN CORPUSCULAR HEMOGLOBIN 28 pg (27.0-31.0); MEAN CORPUSCULAR HGB CONC 32 g/dl (33.0-37.0); RED BLOOD COUNT 3.66 M/mm3 (4.20-5.60); REDCELL DISTRIBUTION WIDTH-CV 20.7 % (11.5-14.5)
[2020-03-24 10:47] LABS: HEMATOCRIT 32.7 % (42.0-52.0)
[2020-03-24 10:48] LABS: ALBUMIN 4.2 gm/dL (3.5-5.0); BILIRUBIN,TOTAL 0.6 mg/dL (0.0-1.0); CALCIUM 9.6 mg/dL (8.4-10.2); CREATININE, serum 0.97 (0.66-1.25); TOTAL PROTEIN 7.1 gm/dL (6.4-8.2)
[2020-03-24 11:07] LABS: PLATELET COUNT 47 K/mm3 (130-400)
[2020-03-24 11:25] VITALS: BP 124/78; PULSE 60; TEMP 97.8
[2020-03-24 11:30] LABS: BAND 4 % (0-10); LYMPHOCYTE 44 % (20.0-51.0); NEUTROPHILS 43 % (42.0-75.2)
[2020-03-24 11:32] LABS: ANISOCYTOSIS 2+; OVALOCYTES 1+; PLATELET ESTIMATE DECREASED (NORMAL); POLYCHROMASIA 1+; SCHISTOCYTES 1+
[2020-03-27 09:20] VITALS: BP 131/77; PULSE 73; TEMP 98.3
[2020-03-27 09:34] LABS: HEMOGLOBIN 10.2 g/dl (13.5-18.0); MEAN CELL VOLUME 89 fl (80.0-100.0); MEAN CORPUSCULAR HEMOGLOBIN 28 pg (27.0-31.0); MEAN CORPUSCULAR HGB CONC 32 g/dl (33.0-37.0); PLATELET COUNT 55 K/mm3 (130-400); RED BLOOD COUNT 3.63 M/mm3 (4.20-5.60); REDCELL DISTRIBUTION WIDTH-CV 20.3 % (11.5-14.5)
[2020-03-27 09:36] LABS: HEMATOCRIT 32.2 % (42.0-52.0)
[2020-03-27 09:44] LABS: ALBUMIN 4.3 gm/dL (3.5-5.0); BILIRUBIN,TOTAL 0.8 mg/dL (0.0-1.0); CALCIUM 9.8 mg/dL (8.4-10.2); CREATININE, serum 1.03 (0.66-1.25); POTASSIUM 3.7 mmol/L (3.4-5.0); TOTAL PROTEIN 7.2 gm/dL (6.4-8.2)
[2020-03-27 10:36] LABS: BAND 3 % (0-10); LYMPHOCYTE 46 % (20.0-51.0); PLATELET ESTIMATE DECREASED (NORMAL)
[2020-03-27 10:38] LABS: ANISOCYTOSIS 2+; METAMYELOCYTE 2 % (0-0); NEUTROPHILS 48 % (42.0-75.2); OVALOCYTES 2+; SCHISTOCYTES 2+
[2020-03-31 10:14] VITALS: BP 112/69; PULSE 60; TEMP 98
[2020-03-31 10:30] LABS: ALBUMIN 4.3 gm/dL (3.5-5.0); BILIRUBIN,TOTAL 0.7 mg/dL (0.0-1.0); CALCIUM 9.9 mg/dL (8.4-10.2); CREATININE, serum 0.99 (0.66-1.25); POTASSIUM 3.9 mmol/L (3.4-5.0); TOTAL PROTEIN 7.1 gm/dL (6.4-8.2)
--- NOTE | 2020-03-31 10:30 | NUR ---
Here for cares. with sterile technique right upper arm PICC dressing change done with insertion site cleansed with chloraprep x 1, chlorhexidine impregnated disk applied, skin prep, stat lock, and tegaderm applied. no signs or symptoms of IV complications noted. no concerns voiced. re-wrapped with chandler to protect catheter. to return as scheduled to . voiced understanding of instructions.
[2020-03-31 10:32] LABS: MEAN CELL VOLUME 89 fl (80.0-100.0); MEAN CORPUSCULAR HGB CONC 33 g/dl (33.0-37.0); RED BLOOD COUNT 3.31 M/mm3 (4.20-5.60); REDCELL DISTRIBUTION WIDTH-CV 19.9 % (11.5-14.5)
[2020-03-31 10:36] LABS: HEMATOCRIT 29.5 % (42.0-52.0); HEMOGLOBIN 9.6 g/dl (13.5-18.0); MEAN CORPUSCULAR HEMOGLOBIN 29 pg (27.0-31.0)
[2020-03-31 10:37] LABS: PLATELET COUNT 38 K/mm3 (130-400)
[2020-03-31 11:41] LABS: BAND 9 % (0-10); EOSINOPHIL 2 % (0-4); HYPOCHROMIA 2+; LYMPHOCYTE 45 % (20.0-51.0); METAMYELOCYTE 1 % (0-0); NEUTROPHILS 42 % (42.0-75.2); OVALOCYTES 1+; PLATELET ESTIMATE DECREASED (NORMAL)
[~2020-04-03] VITALS: Ht 175.3 cm; Wt 58.5 kg
[~2020-04-03 10:00] MED LIST changes: +ALOXII; +CYTARABINE; +DAUNORUBICIN; +EMEND 150M150 MG/VIA
[2020-04-03 10:05] VITALS: BP 122/75; PULSE 79; TEMP 98.3
[2020-04-03 10:31] LABS: MEAN CELL VOLUME 88 fl (80.0-100.0); MEAN CORPUSCULAR HGB CONC 32 g/dl (33.0-37.0); REDCELL DISTRIBUTION WIDTH-CV 19.4 % (11.5-14.5)
[2020-04-03 10:38] LABS: ALBUMIN 4.2 gm/dL (3.5-5.0); BILIRUBIN,TOTAL 0.6 mg/dL (0.0-1.0); CALCIUM 9.4 mg/dL (8.4-10.2); CREATININE, serum 1.13 (0.66-1.25); POTASSIUM 3.9 mmol/L (3.4-5.0); TOTAL PROTEIN 6.9 gm/dL (6.4-8.2)
[2020-04-03 10:55] LABS: HEMATOCRIT 28.3 % (42.0-52.0); HEMOGLOBIN 9.1 g/dl (13.5-18.0); MEAN CORPUSCULAR HEMOGLOBIN 28 pg (27.0-31.0)
[2020-04-03 10:57] LABS: PLATELET COUNT 37 K/mm3 (130-400)
[2020-04-03 11:20] LABS: BAND 10 % (0-10); HYPOCHROMIA 2+; LYMPHOCYTE 34 % (20.0-51.0); NEUTROPHILS 55 % (42.0-75.2); PLATELET ESTIMATE DECREASED (NORMAL); POIKILOCYTOSIS 1+
[2020-04-03 11:21] LABS: OVALOCYTES 1+
== END 2020-04-06 ==
LOC: EUO
PROVIDERS: Internal Medicine Medical Oncology
DX: C92.01 Acute myeloblastic leukemia, in remission (principal); Z95.9 Presence of cardiac and vascular implant and graft, unspecified
CPT/HCPCS: OP; J7050; P9037; P9040

== ENCOUNTER 2020-06-02 10:00 | Outpatient (RCR) | payer OTHER ==
[2020-04-07 10:42] VITALS: BP 129/75; PULSE 65; TEMP 97.4
[2020-04-07 10:44] LABS: HEMATOCRIT 26.4 % (42.0-52.0); HEMOGLOBIN 8.6 g/dl (13.5-18.0); MEAN CELL VOLUME 88 fl (80.0-100.0); MEAN CORPUSCULAR HEMOGLOBIN 29 pg (27.0-31.0); MEAN CORPUSCULAR HGB CONC 33 g/dl (33.0-37.0); REDCELL DISTRIBUTION WIDTH-CV 18.8 % (11.5-14.5)
[2020-04-07 10:45] LABS: PLATELET COUNT 32 K/mm3 (130-400)
[2020-04-07 10:58] LABS: ALBUMIN 4.1 gm/dL (3.5-5.0); BILIRUBIN,TOTAL 0.5 mg/dL (0.0-1.0); CALCIUM 9.6 mg/dL (8.4-10.2); CREATININE, serum 1.06 (0.66-1.25); POTASSIUM 3.7 mmol/L (3.4-5.0); TOTAL PROTEIN 6.9 gm/dL (6.4-8.2)
[2020-04-07 12:30] LABS: NEUTROPHILS 32 % (42.0-75.2)
[2020-04-07 12:55] LABS: OVALOCYTES 2+; POIKILOCYTOSIS 2+
[2020-04-07 12:56] LABS: ANISOCYTOSIS 1+; MICROCYTOSIS 1+; PLATELET ESTIMATE DECREASED (NORMAL)
[2020-04-07 12:58] LABS: HYPOCHROMIA 1+; LYMPHOCYTE 49 % (20.0-51.0)
[2020-04-10 09:57] VITALS: BP 121/76; PULSE 87; TEMP 97.9
[2020-04-10 10:26] LABS: MEAN CELL VOLUME 87 fl (80.0-100.0); MEAN CORPUSCULAR HGB CONC 33 g/dl (33.0-37.0); RED BLOOD COUNT 2.87 M/mm3 (4.20-5.60); REDCELL DISTRIBUTION WIDTH-CV 18.5 % (11.5-14.5)
[2020-04-10 10:29] LABS: ALBUMIN 4.1 gm/dL (3.5-5.0); BILIRUBIN,TOTAL 0.6 mg/dL (0.0-1.0); CALCIUM 9.4 mg/dL (8.4-10.2); CREATININE, serum 0.96 (0.66-1.25); POTASSIUM 3.6 mmol/L (3.4-5.0); TOTAL PROTEIN 6.9 gm/dL (6.4-8.2)
[2020-04-10 10:42] LABS: BAND 5 % (0-10); NEUTROPHILS 49 % (42.0-75.2)
[2020-04-10 10:43] LABS: HYPOCHROMIA 1+; OVALOCYTES 1+; SCHISTOCYTES 1+; TARGET CELLS 2+; TEAR DROP CELLS 1+
[2020-04-10 10:44] LABS: LYMPHOCYTE 43 % (20.0-51.0); PLATELET ESTIMATE DECREASED (NORMAL)
[2020-04-10 10:51] LABS: HEMOGLOBIN 8.3 g/dl (13.5-18.0); MEAN CORPUSCULAR HEMOGLOBIN 29 pg (27.0-31.0)
[2020-04-10 10:53] LABS: PLATELET COUNT 27 K/mm3 (130-400)
[2020-04-14 10:18] LABS: MEAN CELL VOLUME 87 fl (80.0-100.0); MEAN CORPUSCULAR HGB CONC 33 g/dl (33.0-37.0); RED BLOOD COUNT 2.63 M/mm3 (4.20-5.60); REDCELL DISTRIBUTION WIDTH-CV 18.4 % (11.5-14.5)
[2020-04-14 10:19] LABS: HEMATOCRIT 22.9 % (42.0-52.0); HEMOGLOBIN 7.5 g/dl (13.5-18.0); MEAN CORPUSCULAR HEMOGLOBIN 29 pg (27.0-31.0)
[2020-04-14 10:23] LABS: ALBUMIN 4.1 gm/dL (3.5-5.0); BILIRUBIN,TOTAL 0.5 mg/dL (0.0-1.0); CALCIUM 9.7 mg/dL (8.4-10.2); CREATININE, serum 1.05 (0.66-1.25); PLATELET COUNT 27 K/mm3 (130-400); POTASSIUM 3.7 mmol/L (3.4-5.0); TOTAL PROTEIN 6.9 gm/dL (6.4-8.2)
--- NOTE | 2020-04-14 10:30 | NUR ---
Here for cares. with sterile technique right upper arm PICC dressing change done with insertion site cleansed with chloraprep x 1, chlorhexidine impregnated disk applied, skin prep, stat lock, and tegaderm applied. no signs or symptoms of IV complications noted. no concerns voiced. re-wrapped with chandler to protect catheter.
[2020-04-14 10:46] VITALS: BP 135/79; PULSE 69; TEMP 97.9
[2020-04-14 11:12] LABS: LYMPHOCYTE 57 % (20.0-51.0); NEUTROPHILS 37 % (42.0-75.2)
[2020-04-14 11:13] LABS: HYPOCHROMIA 1+; OVALOCYTES 1+
[2020-04-14 11:14] LABS: SCHISTOCYTES 1+; TEAR DROP CELLS 1+
[2020-04-14 11:15] LABS: PLATELET ESTIMATE DECREASED (NORMAL); TARGET CELLS 1+
[2020-04-17 10:04] VITALS: BP 127/78; PULSE 71; TEMP 97.5
[2020-04-17 10:13] LABS: MEAN CELL VOLUME 88 fl (80.0-100.0); MEAN CORPUSCULAR HGB CONC 33 g/dl (33.0-37.0); MEAN PLATELET VOLUME 10.6 fl (7.4-10.4); RED BLOOD COUNT 2.42 M/mm3 (4.20-5.60); REDCELL DISTRIBUTION WIDTH-CV 17.7 % (11.5-14.5)
[2020-04-17 10:25] LABS: BILIRUBIN,TOTAL 0.5 mg/dL (0.0-1.0); CALCIUM 9.3 mg/dL (8.4-10.2); CREATININE, serum 0.98 (0.66-1.25); POTASSIUM 3.7 mmol/L (3.4-5.0); TOTAL PROTEIN 6.6 gm/dL (6.4-8.2)
[2020-04-17 10:29] LABS: HEMATOCRIT 21.4 % (42.0-52.0); MEAN CORPUSCULAR HEMOGLOBIN 29 pg (27.0-31.0); PLATELET COUNT 26 K/mm3 (130-400)
[2020-04-17 10:48] LABS: BAND 7 % (0-10); LYMPHOCYTE 70 % (20.0-51.0); NEUTROPHILS 21 % (42.0-75.2); OVALOCYTES 2+; TEAR DROP CELLS 1+
[2020-04-17 10:49] LABS: HYPOCHROMIA 1+; PLATELET ESTIMATE DECREASED (NORMAL)
[2020-04-18] VITALS (9 sets, daily range): BP systolic 101–129; BP diastolic 51–78; PULSE 50–68; TEMP 97.8–98.8
[2020-04-21 10:10] VITALS: BP 128/76; PULSE 68; TEMP 98
--- NOTE | 2020-04-21 10:10 | NUR ---
here for cares. With sterile technique right upper arm PICC dressing change done with insertion site cleansed with ChloraPrep 1, chlorhexidine impregnated disc applied, skin prep, and StatLock applied. No signs or symptoms of IV complications noted. No concerns voiced. Patient to continue with cares in the express unit as scheduled. Patient voiced understanding of instructions.
[2020-04-21 10:22] LABS: MEAN CELL VOLUME 85 fl (80.0-100.0); MEAN CORPUSCULAR HGB CONC 33 g/dl (33.0-37.0); RED BLOOD COUNT 3.39 M/mm3 (4.20-5.60); REDCELL DISTRIBUTION WIDTH-CV 17.9 % (11.5-14.5)
[2020-04-21 10:26] LABS: HEMATOCRIT 28.8 % (42.0-52.0); HEMOGLOBIN 9.5 g/dl (13.5-18.0); MEAN CORPUSCULAR HEMOGLOBIN 28 pg (27.0-31.0); PLATELET COUNT 26 K/mm3 (130-400)
[2020-04-21 10:41] LABS: ALBUMIN 4.3 gm/dL (3.5-5.0); BILIRUBIN,TOTAL 0.6 mg/dL (0.0-1.0); CALCIUM 9.6 mg/dL (8.4-10.2); CREATININE, serum 1.15 (0.66-1.25); POTASSIUM 3.6 mmol/L (3.4-5.0)
[2020-04-21 12:10] LABS: BAND 22 % (0-10); LYMPHOCYTE 63 % (20.0-51.0); NEUTROPHILS 15 % (42.0-75.2)
[2020-04-21 12:11] LABS: HYPOCHROMIA 1+; OVALOCYTES 2+; PLATELET ESTIMATE DECREASED (NORMAL)
[2020-04-24 09:54] VITALS: BP 104/58; PULSE 71; TEMP 97.8
[2020-04-24 10:33] LABS: ALBUMIN 4.3 gm/dL (3.5-5.0); BILIRUBIN,TOTAL 0.6 mg/dL (0.0-1.0); CALCIUM 9.8 mg/dL (8.4-10.2); CREATININE, serum 1.24 (0.66-1.25); POTASSIUM 3.7 mmol/L (3.4-5.0)
--- NOTE | 2020-04-28 09:55 | NUR ---
Here for cares. with sterile technique right upper arm PICC dressing change done with insertion site cleansed with chloraprep x 1, chlorhexidine impreganted disk applied, skin prep, stat lock, and tegaderm applied. no signs or symptoms of IV complications noted. no concerns voiced. re-wrapped with chandler to protecct catheter. to return as scheduled. voiced understanding of instruction.
[2020-04-28 10:14] LABS: MEAN CELL VOLUME 87 fl (80.0-100.0); MEAN CORPUSCULAR HGB CONC 33 g/dl (33.0-37.0); RED BLOOD COUNT 3.03 M/mm3 (4.20-5.60); REDCELL DISTRIBUTION WIDTH-CV 17.3 % (11.5-14.5)
[2020-04-28 10:16] LABS: HEMATOCRIT 26.2 % (42.0-52.0); HEMOGLOBIN 8.7 g/dl (13.5-18.0); MEAN CORPUSCULAR HEMOGLOBIN 29 pg (27.0-31.0)
[2020-04-28 10:18] LABS: PLATELET COUNT 17 K/mm3 (130-400)
[2020-04-28 10:26] LABS: ALBUMIN 3.7 gm/dL (3.5-5.0); BILIRUBIN,TOTAL 0.4 mg/dL (0.0-1.0); CREATININE, serum 1.08 (0.66-1.25); POTASSIUM 3.6 mmol/L (3.4-5.0); TOTAL PROTEIN 6.3 gm/dL (6.4-8.2)
[2020-04-28 11:20] LABS: BAND 3 % (0-10); HYPOCHROMIA 2+; LYMPHOCYTE 70 % (20.0-51.0); NEUTROPHILS 4 % (42.0-75.2); OVALOCYTES 3+; PLATELET ESTIMATE DECREASED (NORMAL); SCHISTOCYTES 2+
[2020-05-01 10:17] LABS: MEAN CELL VOLUME 87 fl (80.0-100.0); MEAN CORPUSCULAR HGB CONC 33 g/dl (33.0-37.0); RED BLOOD COUNT 2.92 M/mm3 (4.20-5.60); REDCELL DISTRIBUTION WIDTH-CV 17.2 % (11.5-14.5)
[2020-05-01 10:18] LABS: HEMATOCRIT 25.4 % (42.0-52.0); HEMOGLOBIN 8.3 g/dl (13.5-18.0); MEAN CORPUSCULAR HEMOGLOBIN 28 pg (27.0-31.0)
[2020-05-01 10:19] LABS: PLATELET COUNT 10 K/mm3 (130-400)
[2020-05-01 10:26] LABS: ALBUMIN 3.9 gm/dL (3.5-5.0); BILIRUBIN,TOTAL 0.6 mg/dL (0.0-1.0); CALCIUM 9.4 mg/dL (8.4-10.2); CREATININE, serum 1.21 (0.66-1.25); POTASSIUM 3.9 mmol/L (3.4-5.0); TOTAL PROTEIN 6.5 gm/dL (6.4-8.2)
[2020-05-01 11:03] VITALS: BP 119/92; PULSE 62; TEMP 98
[2020-05-01 11:10] LABS: LYMPHOCYTE 67 % (20.0-51.0); NEUTROPHILS 6 % (42.0-75.2)
[2020-05-01 11:11] LABS: PLATELET ESTIMATE DECREASED (NORMAL)
[2020-05-01 11:12] LABS: HYPOCHROMIA 1+
[2020-05-01 11:13] LABS: ANISOCYTOSIS 1+; OVALOCYTES 2+
[2020-05-01 11:14] LABS: SCHISTOCYTES 1+
[2020-05-02 13:30] VITALS: BP 118/70; PULSE 56; TEMP 97.2
[2020-05-02 13:36] VITALS: BP 118/70; PULSE 56; TEMP 97.2
[2020-05-02 13:50] VITALS: BP 129/72; PULSE 53; TEMP 97.6
[2020-05-02 14:05] VITALS: BP 124/70; PULSE 55; TEMP 97.6
[2020-05-02 14:35] VITALS: BP 115/73; PULSE 50; TEMP 97.3
--- NOTE | 2020-05-05 10:00 | NUR ---
Here for cares. with sterile technique right upper arm PICC dressing change done with insertion site cleansed with chloraprep x 1, chlorhexidine impregnated disk applied, skin prep, stat lock, and tegaderm applied. no signs or symptoms of IV complications noted. no concerns voiced. re-wrapped with chandler to protect cathter. to continue with cares in [place] voiced understanding of instructions.
[2020-05-05 10:10] LABS: MEAN CELL VOLUME 87 fl (80.0-100.0); MEAN CORPUSCULAR HGB CONC 33 g/dl (33.0-37.0); RED BLOOD COUNT 2.71 M/mm3 (4.20-5.60); REDCELL DISTRIBUTION WIDTH-CV 17.2 % (11.5-14.5)
[2020-05-05 10:16] VITALS: BP 117/64; PULSE 69; TEMP 97.8
[2020-05-05 10:18] LABS: BILIRUBIN,TOTAL 0.5 mg/dL (0.0-1.0); CALCIUM 9.4 mg/dL (8.4-10.2); CREATININE, serum 1.18 (0.66-1.25); POTASSIUM 3.8 mmol/L (3.4-5.0); TOTAL PROTEIN 6.8 gm/dL (6.4-8.2)
[2020-05-05 10:26] LABS: HEMATOCRIT 23.5 % (42.0-52.0); HEMOGLOBIN 7.7 g/dl (13.5-18.0); MEAN CORPUSCULAR HEMOGLOBIN 28 pg (27.0-31.0)
[2020-05-05 10:27] LABS: PLATELET COUNT 24 K/mm3 (130-400)
[2020-05-05 13:40] LABS: LYMPHOCYTE 66 % (20.0-51.0); NEUTROPHILS 5 % (42.0-75.2)
[2020-05-05 13:41] LABS: ANISOCYTOSIS 1+; HYPOCHROMIA 2+; PLATELET ESTIMATE DECREASED (NORMAL)
[2020-05-08 09:26] VITALS: BP 105/68; PULSE 76; TEMP 98.2
[2020-05-08 09:31] LABS: MEAN CELL VOLUME 87 fl (80.0-100.0); MEAN CORPUSCULAR HGB CONC 33 g/dl (33.0-37.0); RED BLOOD COUNT 2.51 M/mm3 (4.20-5.60); REDCELL DISTRIBUTION WIDTH-CV 17.1 % (11.5-14.5)
[2020-05-08 09:38] LABS: HEMATOCRIT 21.7 % (42.0-52.0); HEMOGLOBIN 7.1 g/dl (13.5-18.0); MEAN CORPUSCULAR HEMOGLOBIN 28 pg (27.0-31.0)
[2020-05-08 09:39] LABS: PLATELET COUNT 9 K/mm3 (130-400)
[2020-05-08 10:12] LABS: BILIRUBIN,TOTAL 0.5 mg/dL (0.0-1.0); CALCIUM 9.3 mg/dL (8.4-10.2); CREATININE, serum 1.21 (0.66-1.25); POTASSIUM 3.6 mmol/L (3.4-5.0); TOTAL PROTEIN 6.7 gm/dL (6.4-8.2)
[2020-05-08 10:49] LABS: BAND 6 % (0-10); HYPOCHROMIA 1+; LYMPHOCYTE 69 % (20.0-51.0); NEUTROPHILS 8 % (42.0-75.2); OVALOCYTES 2+; PLATELET ESTIMATE DECREASED (NORMAL); SCHISTOCYTES 1+; TARGET CELLS 2+
[2020-05-09] VITALS (15 sets, daily range): BP systolic 98–149; BP diastolic 50–101; PULSE 55–95; TEMP 97.6–98.3
--- NOTE | 2020-05-09 20:09 | NUR ---
report to [facility] rgay.
--- NOTE | 2020-05-09 20:55 | NUR ---
Patient finished with transfusion; denies any concerns at this time. Upon discharge patient was alert and oriented X4 and left facility independently.
--- NOTE | 2020-05-12 10:00 | NUR ---
here for cares. With sterile technique right upper arm PICC dressing change done with insertion site cleansed with ChloraPrep 1, chlorhexidine impregnated disc applied, skin prep, StatLock, and Tegaderm applied. No signs or symptoms of IV complications noted. No concerns voiced. Patient to return next week as scheduled for cares. Patient voiced understanding of instructions.
[2020-05-12 10:50] LABS: ALBUMIN 3.9 gm/dL (3.5-5.0); BILIRUBIN,TOTAL 0.4 mg/dL (0.0-1.0); CALCIUM 9.1 mg/dL (8.4-10.2); CREATININE, serum 1.05 (0.66-1.25); POTASSIUM 3.7 mmol/L (3.4-5.0); TOTAL PROTEIN 6.4 gm/dL (6.4-8.2)
[2020-05-12 10:53] LABS: HEMOGLOBIN 10.9 g/dl (13.5-18.0); MEAN CELL VOLUME 86 fl (80.0-100.0); MEAN CORPUSCULAR HEMOGLOBIN 28 pg (27.0-31.0); MEAN CORPUSCULAR HGB CONC 33 g/dl (33.0-37.0); RED BLOOD COUNT 3.85 M/mm3 (4.20-5.60); REDCELL DISTRIBUTION WIDTH-CV 16.4 % (11.5-14.5)
[2020-05-12 10:54] LABS: HEMATOCRIT 32.9 % (42.0-52.0)
[2020-05-12 10:55] LABS: PLATELET COUNT 29 K/mm3 (130-400)
[2020-05-12 12:01] VITALS: BP 136/73; PULSE 79; TEMP 97.9
[2020-05-12 12:12] LABS: BAND 7 % (0-10); LYMPHOCYTE 61 % (20.0-51.0); NEUTROPHILS 13 % (42.0-75.2); OVALOCYTES 2+; PLATELET ESTIMATE DECREASED (NORMAL)
[2020-05-15 10:26] LABS: ALBUMIN 3.9 gm/dL (3.5-5.0); BILIRUBIN,TOTAL 0.7 mg/dL (0.0-1.0); CALCIUM 9.2 mg/dL (8.4-10.2); CREATININE, serum 1.03 (0.66-1.25); POTASSIUM 3.6 mmol/L (3.4-5.0); TOTAL PROTEIN 6.4 gm/dL (6.4-8.2)
[2020-05-15 10:27] LABS: MEAN CELL VOLUME 86 fl (80.0-100.0); MEAN CORPUSCULAR HGB CONC 34 g/dl (33.0-37.0); RED BLOOD COUNT 2.92 M/mm3 (4.20-5.60)
[2020-05-15 10:49] LABS: HEMATOCRIT 25.1 % (42.0-52.0); HEMOGLOBIN 8.5 g/dl (13.5-18.0); MEAN CORPUSCULAR HEMOGLOBIN 29 pg (27.0-31.0)
[2020-05-15 10:50] LABS: PLATELET COUNT 11 K/mm3 (130-400)
[2020-05-15 11:16] VITALS: BP 124/73; PULSE 70; TEMP 98.5
[2020-05-15 12:03] LABS: BAND 12 % (0-10); LYMPHOCYTE 68 % (20.0-51.0); NEUTROPHILS 7 % (42.0-75.2); OVALOCYTES 1+
[2020-05-15 12:04] LABS: PLATELET ESTIMATE DECREASED (NORMAL)
[2020-05-16 11:54] LABS: MEAN CELL VOLUME 86 fl (80.0-100.0); MEAN CORPUSCULAR HGB CONC 33 g/dl (33.0-37.0); RED BLOOD COUNT 3.04 M/mm3 (4.20-5.60); REDCELL DISTRIBUTION WIDTH-CV 15.9 % (11.5-14.5)
[2020-05-16 12:00] LABS: HEMATOCRIT 26.1 % (42.0-52.0); HEMOGLOBIN 8.6 g/dl (13.5-18.0); MEAN CORPUSCULAR HEMOGLOBIN 28 pg (27.0-31.0)
[2020-05-16 12:01] LABS: PLATELET COUNT 9 K/mm3 (130-400)
[2020-05-16 13:19] LABS: ANISOCYTOSIS 1+; BAND 6 % (0-10); HYPOCHROMIA 1+; LYMPHOCYTE 68 % (20.0-51.0); NEUTROPHILS 8 % (42.0-75.2); OVALOCYTES 1+; PLATELET ESTIMATE DECREASED (NORMAL)
--- NOTE | 2020-05-17 12:25 | NUR ---
Patient to room 353 by wheelchair from ER entrance. A&Ox4. VSS. PICC DENILSON CDI. Denies pain and discomfort. Oriented patient to room, call light and location. No further needs expressed from the patient. Call light within reach
[2020-05-17 12:37] VITALS: BP 102/66; PULSE 64; TEMP 98.3
--- NOTE | 2020-05-17 12:43 | NUR ---
Platelet transfusion started. VSS, monitoring VS. Patient tolerating transfusion. Nurse at the bedside. Call light within reach
[2020-05-17 12:51] VITALS: BP 104/53; PULSE 67; TEMP 98.3
[2020-05-17 13:16] VITALS: BP 101/65; PULSE 57; TEMP 98.3
--- NOTE | 2020-05-17 13:17 | NUR ---
First transfusion complete. Patient tolerated well. VSS. IV CDI. Second unit transfusing. Nurse at the bedside. Will continue to monitor. Call light within reach
[2020-05-17 13:37] VITALS: BP 138/71; PULSE 64; TEMP 98.3
[2020-05-17 13:55] VITALS: BP 114/75; PULSE 61; TEMP 98.3
[2020-05-17 14:07] VITALS: BP 121/72; PULSE 51
--- NOTE | 2020-05-17 14:07 | NUR ---
Transfusion complete. Patient tolerated well. VSS. PICC DENILSON CDI. No further needs expressed from the patient. Patient DC with PICC in place. Nursing staff transfered patient by wheelchair to vehicle.
--- NOTE | 2020-05-20 10:10 | NUR ---
Here for cares. RIght upper arm PICC intact with sterile dressing change done with insertion site cleansed with chloraprep x 1, chlorhexidine impregnated disk applied, skin prep, stat lock, and tegaderm applied. no signs or symptoms of IV complications noted. no concerns voiced. re-wrapped with chandler to protect catheter. to continue with cares in [place]. voiced understanding of instructions.
[2020-05-20 10:34] VITALS: BP 109/69; PULSE 69; TEMP 97
[2020-05-20 10:37] LABS: MEAN CELL VOLUME 87 fl (80.0-100.0); MEAN CORPUSCULAR HGB CONC 33 g/dl (33.0-37.0); MEAN PLATELET VOLUME 10.8 fl (7.4-10.4); RED BLOOD COUNT 2.72 M/mm3 (4.20-5.60); REDCELL DISTRIBUTION WIDTH-CV 15.9 % (11.5-14.5)
[2020-05-20 10:41] LABS: HEMATOCRIT 23.7 % (42.0-52.0); HEMOGLOBIN 7.8 g/dl (13.5-18.0); MEAN CORPUSCULAR HEMOGLOBIN 29 pg (27.0-31.0); PLATELET COUNT 44 K/mm3 (130-400)
[2020-05-20 10:49] LABS: BILIRUBIN,TOTAL 0.6 mg/dL (0.0-1.0); CALCIUM 9.4 mg/dL (8.4-10.2); CREATININE, serum 1.01 (0.66-1.25); TOTAL PROTEIN 6.7 gm/dL (6.4-8.2)
[2020-05-20 11:49] LABS: BAND 14 % (0-10); LYMPHOCYTE 58 % (20.0-51.0); NEUTROPHILS 17 % (42.0-75.2)
[2020-05-20 11:50] LABS: PLATELET ESTIMATE DECREASED (NORMAL)
[2020-05-20 12:09] LABS: OVALOCYTES 2+
[2020-05-22 10:31] VITALS: BP 120/66; PULSE 84; TEMP 98.2
[2020-05-22 10:55] LABS: MEAN CELL VOLUME 86 fl (80.0-100.0); MEAN CORPUSCULAR HGB CONC 33 g/dl (33.0-37.0); MEAN PLATELET VOLUME 8.9 fl (7.4-10.4); RED BLOOD COUNT 2.52 M/mm3 (4.20-5.60); REDCELL DISTRIBUTION WIDTH-CV 15.9 % (11.5-14.5)
[2020-05-22 11:03] LABS: BILIRUBIN,TOTAL 0.7 mg/dL (0.0-1.0); CALCIUM 9.4 mg/dL (8.4-10.2); CREATININE, serum 1.05 (0.66-1.25); POTASSIUM 3.5 mmol/L (3.4-5.0); TOTAL PROTEIN 6.7 gm/dL (6.4-8.2)
[2020-05-22 11:21] LABS: BAND 4 % (0-10); LYMPHOCYTE 80 % (20.0-51.0); OVALOCYTES 1+; PLATELET ESTIMATE DECREASED (NORMAL); SCHISTOCYTES 1+
[2020-05-22 11:23] LABS: HEMATOCRIT 21.6 % (42.0-52.0); HEMOGLOBIN 7.2 g/dl (13.5-18.0); MEAN CORPUSCULAR HEMOGLOBIN 29 pg (27.0-31.0); PLATELET COUNT 24 K/mm3 (130-400)
[2020-05-23] VITALS (8 sets, daily range): BP systolic 115–127; BP diastolic 67–81; PULSE 67–84; TEMP 97.9–98.9
--- NOTE | 2020-05-26 09:45 | NUR ---
Here for cares. Right upper arm PICC intact with sterile dressing change done with insertion site cleansed with chloraprep x 1, chlorhexidine impregnated disk applied, skin prep, stat lock, and tegaderm applied. no signs or symptoms of IV complications noted. no concerns voiced. re-wrapped with chandler to protect catheter. to return as scheduled to for cares. voiced understanding of instructions.
[2020-05-26 10:10] VITALS: BP 141/89; PULSE 68; TEMP 97.7
[2020-05-26 10:14] LABS: MEAN CELL VOLUME 86 fl (80.0-100.0); MEAN CORPUSCULAR HGB CONC 34 g/dl (33.0-37.0); REDCELL DISTRIBUTION WIDTH-CV 14.7 % (11.5-14.5)
[2020-05-26 10:20] LABS: HEMATOCRIT 27.5 % (42.0-52.0); HEMOGLOBIN 9.2 g/dl (13.5-18.0); MEAN CORPUSCULAR HEMOGLOBIN 29 pg (27.0-31.0); PLATELET COUNT 6 K/mm3 (130-400)
[2020-05-26 10:28] LABS: BILIRUBIN,TOTAL 0.8 mg/dL (0.0-1.0); CALCIUM 9.1 mg/dL (8.4-10.2); CREATININE, serum 0.92 (0.66-1.25); POTASSIUM 3.6 mmol/L (3.4-5.0); TOTAL PROTEIN 6.7 gm/dL (6.4-8.2)
[2020-05-26 12:10] LABS: BAND 3 % (0-10); LYMPHOCYTE 90 % (20.0-51.0); NEUTROPHILS 3 % (42.0-75.2); PLATELET ESTIMATE DECREASED (NORMAL)
[2020-05-26 12:11] LABS: OVALOCYTES 1+; SCHISTOCYTES 1+; TEAR DROP CELLS 1+
--- NOTE | 2020-05-26 17:26 | NUR ---
Pt arrived for platelet transfusion.
[2020-05-26 18:07] VITALS: BP 124/74; PULSE 72; TEMP 98.2
[2020-05-26 18:25] VITALS: BP 115/69; PULSE 67; TEMP 98.1
[2020-05-26 18:40] VITALS: BP 125/74; PULSE 60; TEMP 98
[2020-05-26 19:10] VITALS: BP 120/75; PULSE 64; TEMP 98.1
--- NOTE | 2020-05-26 19:13 | NUR ---
Pt discharged via ambulatory.Pt to return tomorrow for additional labs.
[2020-05-27 10:15] VITALS: BP 129/78; PULSE 64; TEMP 98.7
[2020-05-27 10:23] LABS: MEAN CELL VOLUME 86 fl (80.0-100.0); MEAN CORPUSCULAR HGB CONC 34 g/dl (33.0-37.0); MEAN PLATELET VOLUME 10.1 fl (7.4-10.4); RED BLOOD COUNT 3.05 M/mm3 (4.20-5.60); REDCELL DISTRIBUTION WIDTH-CV 14.6 % (11.5-14.5)
[2020-05-27 10:27] LABS: HEMATOCRIT 26.1 % (42.0-52.0); HEMOGLOBIN 8.9 g/dl (13.5-18.0); MEAN CORPUSCULAR HEMOGLOBIN 29 pg (27.0-31.0); PLATELET COUNT 44 K/mm3 (130-400)
[2020-05-27 10:50] LABS: BAND 4 % (0-10); LYMPHOCYTE 80 % (20.0-51.0); NEUTROPHILS 4 % (42.0-75.2); OVALOCYTES 1+; PLATELET ESTIMATE DECREASED (NORMAL)
[2020-05-27 10:51] LABS: HYPOCHROMIA 1+; SCHISTOCYTES 1+
[2020-05-29 10:28] LABS: MEAN CELL VOLUME 87 fl (80.0-100.0); MEAN CORPUSCULAR HGB CONC 34 g/dl (33.0-37.0); MEAN PLATELET VOLUME 9.5 fl (7.4-10.4); REDCELL DISTRIBUTION WIDTH-CV 14.5 % (11.5-14.5)
[2020-05-29 10:40] LABS: ALBUMIN 4.2 gm/dL (3.5-5.0); BILIRUBIN,TOTAL 0.9 mg/dL (0.0-1.0); CALCIUM 9.6 mg/dL (8.4-10.2); CREATININE, serum 0.8 (0.66-1.25); POTASSIUM 3.5 mmol/L (3.4-5.0); TOTAL PROTEIN 6.9 gm/dL (6.4-8.2)
[2020-05-29 10:47] LABS: HEMATOCRIT 25.1 % (42.0-52.0); HEMOGLOBIN 8.5 g/dl (13.5-18.0); MEAN CORPUSCULAR HEMOGLOBIN 29 pg (27.0-31.0); PLATELET COUNT 24 K/mm3 (130-400)
[2020-05-29 11:20] LABS: LYMPHOCYTE 100 % (20.0-51.0)
[2020-05-29 11:22] LABS: ANISOCYTOSIS 1+; PLATELET ESTIMATE DECREASED (NORMAL)
[2020-05-30 09:56] VITALS: BP 128/74; PULSE 77; TEMP 99.1
[2020-05-30 10:24] LABS: MEAN CELL VOLUME 87 fl (80.0-100.0); MEAN CORPUSCULAR HGB CONC 34 g/dl (33.0-37.0); RED BLOOD COUNT 2.82 M/mm3 (4.20-5.60); REDCELL DISTRIBUTION WIDTH-CV 14.4 % (11.5-14.5)
[2020-05-30 10:42] LABS: HEMATOCRIT 24.5 % (42.0-52.0); HEMOGLOBIN 8.3 g/dl (13.5-18.0); MEAN CORPUSCULAR HEMOGLOBIN 29 pg (27.0-31.0); PLATELET COUNT 19 K/mm3 (130-400)
[2020-05-30 11:13] LABS: BAND 2 % (0-10); LYMPHOCYTE 90 % (20.0-51.0); METAMYELOCYTE 2 % (0-0); OVALOCYTES 1+; PLATELET ESTIMATE DECREASED (NORMAL); TEAR DROP CELLS 1+
[2020-05-30 11:14] LABS: HYPOCHROMIA 1+; SCHISTOCYTES 1+
[~2020-06-02] VITALS: Ht 175.3 cm; Wt 55.7 kg
[~2020-06-02 10:00] MED LIST changes: +VIDAZA100 MG SQ; +ZYLOPRIM 300MG300 MG PO
--- NOTE | 2020-06-02 10:00 | NUR ---
Here for cares. PICC intact right upper arm with sterile dressing change done with insertion site cleansed with chloraprep x 1, chlorhexidine impregnated disk applied, skin prep, stat lock, and tegaderm applied. no signs or symptoms of IV complications noted. no concerns voiced. re-wrapped with chandler to protect catheter. to return next week for cares. voiced understanding of instructions.
[2020-06-02 10:23] VITALS: BP 104/70; PULSE 91; TEMP 98.4
[2020-06-02 10:40] LABS: MEAN CELL VOLUME 85 fl (80.0-100.0); MEAN CORPUSCULAR HGB CONC 35 g/dl (33.0-37.0); RED BLOOD COUNT 2.65 M/mm3 (4.20-5.60); REDCELL DISTRIBUTION WIDTH-CV 14.4 % (11.5-14.5)
[2020-06-02 10:42] LABS: HEMATOCRIT 22.6 % (42.0-52.0); HEMOGLOBIN 7.8 g/dl (13.5-18.0); MEAN CORPUSCULAR HEMOGLOBIN 29 pg (27.0-31.0); PLATELET COUNT 4 K/mm3 (130-400)
[2020-06-02 10:49] LABS: ALBUMIN 3.9 gm/dL (3.5-5.0); BILIRUBIN,TOTAL 1.1 mg/dL (0.0-1.0); CREATININE, serum 1.1 (0.66-1.25); TOTAL PROTEIN 6.8 gm/dL (6.4-8.2)
[2020-06-02 12:12] LABS: BAND 4 % (0-10); PLATELET ESTIMATE DECREASED (NORMAL)
[2020-06-02 12:14] LABS: LYMPHOCYTE 94 % (20.0-51.0)
[2020-07-07] MEDS ORDERED: VENTOLIN0.09 MG IH (11:48)
[2020-07-07] MEDS ORDERED: NOXAFILTAB PO (11:49)
[2020-07-07] MEDS ORDERED: RT SPIRIVA18 MCG IH (11:50)
[2020-07-07] MEDS ORDERED: AFRIN 15 ML15 ML NS (11:51)
== END 2020-06-05 12:02 | disposition home or self-care (01) ==
LOC: EUO 10:00
PROVIDERS: Internal Medicine Medical Oncology
DX: C92.01 Acute myeloblastic leukemia, in remission (principal)
CPT/HCPCS: OP; J7050; P9037; P9040

== ENCOUNTER 2020-08-15 13:00 | Outpatient (RCR) | payer MEDICARE ==
[2020-07-07 12:06] VITALS: BP 101/58; PULSE 71; TEMP 98.5
[2020-07-07 12:22] LABS: HEMATOCRIT 21.2 % (42.0-52.0); MEAN CELL VOLUME 86 fl (80.0-100.0); MEAN CORPUSCULAR HEMOGLOBIN 28 pg (27.0-31.0); MEAN CORPUSCULAR HGB CONC 33 g/dl (33.0-37.0); RED BLOOD COUNT 2.47 M/mm3 (4.20-5.60); REDCELL DISTRIBUTION WIDTH-CV 13.6 % (11.5-14.5)
[2020-07-07 12:23] LABS: PLATELET COUNT 5 K/mm3 (130-400)
[2020-07-07 12:41] LABS: ALBUMIN 3.4 gm/dL (3.5-5.0); BILIRUBIN,TOTAL 0.5 mg/dL (0.0-1.0); CALCIUM 8.9 mg/dL (8.4-10.2); CREATININE, serum 0.97 (0.66-1.25); POTASSIUM 3.8 mmol/L (3.4-5.0); TOTAL PROTEIN 6.4 gm/dL (6.4-8.2)
[2020-07-07 12:42] LABS: LYMPHOCYTE 60 % (20.0-51.0); NEUTROPHILS 3 % (42.0-75.2); PLATELET ESTIMATE DECREASED (NORMAL)
[2020-07-07 12:43] LABS: HYPOCHROMIA 1+; OVALOCYTES 1+; POIKILOCYTOSIS 1+
--- NOTE | 2020-07-07 13:10 | NUR ---
here for cares. PICC intact right upper arm. Insertion site cleansed with ChloraPrep 1, chlorhexidine impregnated disc applied, skin prep, StatLock, and Tegaderm applied. No signs or symptoms of IV complications noted. No concerns voiced. Arm wrapped with Russ to protect catheter. Patient to continue in express unit with cares is scheduled. Patient voiced understanding of instructions.
[2020-07-08] VITALS (17 sets, daily range): BP systolic 97–133; BP diastolic 47–85; PULSE 52–73; TEMP 97.5–97.8
[2020-07-10 09:58] VITALS: BP 132/74; PULSE 73; TEMP 98.4
[2020-07-10 10:16] LABS: MEAN CELL VOLUME 84 fl (80.0-100.0); MEAN CORPUSCULAR HGB CONC 34 g/dl (33.0-37.0); MEAN PLATELET VOLUME 10.4 fl (7.4-10.4); PLATELET COUNT 53 K/mm3 (130-400); RED BLOOD COUNT 3.03 M/mm3 (4.20-5.60); REDCELL DISTRIBUTION WIDTH-CV 13.6 % (11.5-14.5)
[2020-07-10 10:17] LABS: HEMATOCRIT 25.5 % (42.0-52.0); HEMOGLOBIN 8.7 g/dl (13.5-18.0); MEAN CORPUSCULAR HEMOGLOBIN 29 pg (27.0-31.0)
[2020-07-10 10:24] LABS: ALBUMIN 3.6 gm/dL (3.5-5.0); BILIRUBIN,TOTAL 0.6 mg/dL (0.0-1.0); CALCIUM 9.1 mg/dL (8.4-10.2); CREATININE, serum 1.06 (0.66-1.25); POTASSIUM 3.9 mmol/L (3.4-5.0); TOTAL PROTEIN 6.5 gm/dL (6.4-8.2)
[2020-07-10 11:06] LABS: LYMPHOCYTE 32 % (20.0-51.0)
[2020-07-10 11:08] LABS: OVALOCYTES 1+; POIKILOCYTOSIS 1+
[2020-07-11 08:02] LABS: PATHOLOGY DIFF REVIEW OK +
--- NOTE | 2020-07-14 09:45 | NUR ---
here for cares. PICC intact right upper arm with sterile dressing change done and insertion site cleansed with ChloraPrep 1, chlorhexidine impregnated disc applied, skin prep, StatLock, and Tegaderm applied. No signs or symptoms of IV complications noted. No concerns voiced. Patient to return next week for cares. Patient voiced understanding of instructions.
[2020-07-14 09:57] VITALS: BP 120/63; PULSE 64; TEMP 98.2
[2020-07-14 10:03] LABS: MEAN CELL VOLUME 86 fl (80.0-100.0); MEAN CORPUSCULAR HGB CONC 34 g/dl (33.0-37.0); MEAN PLATELET VOLUME 11.2 fl (7.4-10.4); RED BLOOD COUNT 2.96 M/mm3 (4.20-5.60); REDCELL DISTRIBUTION WIDTH-CV 13.5 % (11.5-14.5)
[2020-07-14 10:05] LABS: HEMATOCRIT 25.3 % (42.0-52.0); HEMOGLOBIN 8.5 g/dl (13.5-18.0); MEAN CORPUSCULAR HEMOGLOBIN 29 pg (27.0-31.0); PLATELET COUNT 10 K/mm3 (130-400)
[2020-07-14 10:20] LABS: ALBUMIN 3.5 gm/dL (3.5-5.0); BILIRUBIN,TOTAL 0.6 mg/dL (0.0-1.0); CALCIUM 8.9 mg/dL (8.4-10.2); CREATININE, serum 1.18 (0.66-1.25); POTASSIUM 3.5 mmol/L (3.4-5.0); TOTAL PROTEIN 6.4 gm/dL (6.4-8.2)
[2020-07-14 10:31] LABS: LYMPHOCYTE 54 % (20.0-51.0); METAMYELOCYTE 1 % (0-0); NEUTROPHILS 1 % (42.0-75.2)
[2020-07-14 10:32] LABS: BAND 2 % (0-10)
[2020-07-15] VITALS (9 sets, daily range): BP systolic 111–123; BP diastolic 60–83; PULSE 58–68; TEMP 97.5–98.9
[2020-07-17 10:30] VITALS: BP 115/58; PULSE 69; TEMP 98.6
[2020-07-17 10:36] LABS: MEAN CELL VOLUME 86 fl (80.0-100.0); MEAN CORPUSCULAR HGB CONC 34 g/dl (33.0-37.0); MEAN PLATELET VOLUME 11.2 fl (7.4-10.4); RED BLOOD COUNT 2.73 M/mm3 (4.20-5.60); REDCELL DISTRIBUTION WIDTH-CV 13.8 % (11.5-14.5)
[2020-07-17 10:51] LABS: BAND 3 % (0-10); NEUTROPHILS 1 % (42.0-75.2); PLATELET ESTIMATE DECREASED (NORMAL)
[2020-07-17 10:52] LABS: OVALOCYTES 1+
[2020-07-17 10:53] LABS: HEMATOCRIT 23.4 % (42.0-52.0); HEMOGLOBIN 7.9 g/dl (13.5-18.0); LYMPHOCYTE 58 % (20.0-51.0); MEAN CORPUSCULAR HEMOGLOBIN 29 pg (27.0-31.0)
[2020-07-17 10:54] LABS: PLATELET COUNT 39 K/mm3 (130-400)
[2020-07-17 10:55] LABS: ALBUMIN 3.5 gm/dL (3.5-5.0); BILIRUBIN,TOTAL 0.7 mg/dL (0.0-1.0); CREATININE, serum 1.09 (0.66-1.25); POTASSIUM 3.3 mmol/L (3.4-5.0); TOTAL PROTEIN 6.3 gm/dL (6.4-8.2)
[2020-07-21 10:34] VITALS: BP 111/65; PULSE 64; TEMP 98.7
[2020-07-21 10:40] LABS: ALBUMIN 3.4 gm/dL (3.5-5.0); BILIRUBIN,TOTAL 0.5 mg/dL (0.0-1.0); CALCIUM 8.9 mg/dL (8.4-10.2); CREATININE, serum 1.2 (0.66-1.25); POTASSIUM 3.9 mmol/L (3.4-5.0)
[2020-07-21 10:56] LABS: MEAN CELL VOLUME 85 fl (80.0-100.0); MEAN CORPUSCULAR HGB CONC 33 g/dl (33.0-37.0); RED BLOOD COUNT 2.53 M/mm3 (4.20-5.60); REDCELL DISTRIBUTION WIDTH-CV 14.1 % (11.5-14.5)
[2020-07-21 11:07] LABS: HEMATOCRIT 21.6 % (42.0-52.0); HEMOGLOBIN 7.2 g/dl (13.5-18.0); MEAN CORPUSCULAR HEMOGLOBIN 28 pg (27.0-31.0)
[2020-07-21 11:08] LABS: PLATELET COUNT 6 K/mm3 (130-400)
[2020-07-21 11:57] LABS: BAND 8 % (0-10); LYMPHOCYTE 37 % (20.0-51.0); NEUTROPHILS 1 % (42.0-75.2)
[2020-07-21 11:58] LABS: OVALOCYTES 2+; PLATELET ESTIMATE DECREASED (NORMAL)
[2020-07-22] VITALS (7 sets, daily range): BP systolic 97–105; BP diastolic 46–52; PULSE 50–58; TEMP 97.6–98.7
[2020-07-24 09:30] VITALS: BP 110/67; PULSE 67; TEMP 98
[2020-07-24 09:52] LABS: MEAN CELL VOLUME 85 fl (80.0-100.0); MEAN CORPUSCULAR HGB CONC 33 g/dl (33.0-37.0); MEAN PLATELET VOLUME 10.5 fl (7.4-10.4); RED BLOOD COUNT 2.38 M/mm3 (4.20-5.60); REDCELL DISTRIBUTION WIDTH-CV 14.2 % (11.5-14.5)
[2020-07-24 09:55] LABS: HEMATOCRIT 20.3 % (42.0-52.0); HEMOGLOBIN 6.7 g/dl (13.5-18.0); MEAN CORPUSCULAR HEMOGLOBIN 28 pg (27.0-31.0)
[2020-07-24 09:56] LABS: PLATELET COUNT 19 K/mm3 (130-400)
[2020-07-24 09:57] LABS: ALBUMIN 3.5 gm/dL (3.5-5.0); BILIRUBIN,TOTAL 0.9 mg/dL (0.0-1.0); CALCIUM 8.9 mg/dL (8.4-10.2); CREATININE, serum 1.27 (0.66-1.25); POTASSIUM 3.8 mmol/L (3.4-5.0)
[2020-07-24 11:51] LABS: BAND 2 % (0-10); OVALOCYTES 2+; PLATELET ESTIMATE DECREASED (NORMAL)
[2020-07-24 11:52] LABS: LYMPHOCYTE 52 % (20.0-51.0)
[2020-07-25] VITALS (12 sets, daily range): BP systolic 95–127; BP diastolic 52–74; PULSE 53–73; TEMP 97.6–98.1
[2020-07-25 08:30] LABS: PATHOLOGY DIFF REVIEW OK
[2020-07-28 10:01] LABS: MEAN CELL VOLUME 84 fl (80.0-100.0); MEAN CORPUSCULAR HGB CONC 34 g/dl (33.0-37.0); MEAN PLATELET VOLUME 11.8 fl (7.4-10.4); RED BLOOD COUNT 3.19 M/mm3 (4.20-5.60); REDCELL DISTRIBUTION WIDTH-CV 14.5 % (11.5-14.5)
[2020-07-28 10:04] VITALS: BP 105/55; PULSE 78; TEMP 98
[2020-07-28 10:05] LABS: HEMATOCRIT 26.7 % (42.0-52.0); MEAN CORPUSCULAR HEMOGLOBIN 28 pg (27.0-31.0); PLATELET COUNT 23 K/mm3 (130-400)
[2020-07-28 10:23] LABS: ALBUMIN 3.7 gm/dL (3.5-5.0); BILIRUBIN,TOTAL 0.8 mg/dL (0.0-1.0); CALCIUM 9.1 mg/dL (8.4-10.2); CREATININE, serum 1.33 (0.66-1.25); POTASSIUM 3.1 mmol/L (3.4-5.0); TOTAL PROTEIN 6.2 gm/dL (6.4-8.2)
[2020-07-28 10:38] LABS: BAND 2 % (0-10)
[2020-07-28 10:39] LABS: OVALOCYTES 1+; PLATELET ESTIMATE DECREASED (NORMAL)
[2020-07-28 10:40] LABS: LYMPHOCYTE 38 % (20.0-51.0)
[2020-07-31 10:00] VITALS: BP 103/53; PULSE 60; TEMP 97.6
[2020-07-31 10:32] LABS: MEAN CELL VOLUME 84 fl (80.0-100.0); MEAN CORPUSCULAR HGB CONC 34 g/dl (33.0-37.0); MEAN PLATELET VOLUME 12.7 fl (7.4-10.4); RED BLOOD COUNT 3.14 M/mm3 (4.20-5.60); REDCELL DISTRIBUTION WIDTH-CV 14.5 % (11.5-14.5)
[2020-07-31 10:35] LABS: HEMATOCRIT 26.5 % (42.0-52.0); MEAN CORPUSCULAR HEMOGLOBIN 29 pg (27.0-31.0)
[2020-07-31 10:37] LABS: PLATELET COUNT 7 K/mm3 (130-400)
[2020-07-31 11:05] LABS: ALBUMIN 3.8 gm/dL (3.5-5.0); BILIRUBIN,TOTAL 0.7 mg/dL (0.0-1.0); CALCIUM 9.2 mg/dL (8.4-10.2); CREATININE, serum 1.28 (0.66-1.25); POTASSIUM 3.9 mmol/L (3.4-5.0); TOTAL PROTEIN 6.1 gm/dL (6.4-8.2)
[2020-07-31 11:08] LABS: LYMPHOCYTE 22 % (20.0-51.0); NEUTROPHILS 4 % (42.0-75.2)
[2020-07-31 11:09] LABS: PLATELET ESTIMATE DECREASED (NORMAL)
[2020-07-31 11:14] LABS: OVALOCYTES 1+; SCHISTOCYTES 1+; SPHEROCYTE 1+; TARGET CELLS 1+
[2020-08-01] VITALS (9 sets, daily range): BP systolic 100–134; BP diastolic 49–85; PULSE 52–87; TEMP 98–98.2
[2020-08-04 10:44] LABS: MEAN CELL VOLUME 84 fl (80.0-100.0); MEAN CORPUSCULAR HGB CONC 34 g/dl (33.0-37.0); RED BLOOD COUNT 2.76 M/mm3 (4.20-5.60); REDCELL DISTRIBUTION WIDTH-CV 14.5 % (11.5-14.5)
[2020-08-04 10:46] LABS: HEMATOCRIT 23.3 % (42.0-52.0); HEMOGLOBIN 7.9 g/dl (13.5-18.0); MEAN CORPUSCULAR HEMOGLOBIN 29 pg (27.0-31.0)
[2020-08-04 10:47] LABS: PLATELET COUNT 11 K/mm3 (130-400)
[2020-08-04 11:07] LABS: ALBUMIN 3.4 gm/dL (3.5-5.0); BILIRUBIN,TOTAL 1.3 mg/dL (0.0-1.0); CREATININE, serum 1.53 (0.66-1.25); POTASSIUM 3.5 mmol/L (3.4-5.0); TOTAL PROTEIN 5.8 gm/dL (6.4-8.2)
[2020-08-04 11:13] LABS: HYPOCHROMIA 1+; LYMPHOCYTE 9 % (20.0-51.0); NEUTROPHILS 4 % (42.0-75.2)
[2020-08-04 11:14] LABS: OVALOCYTES 1+; PLATELET ESTIMATE DECREASED (NORMAL); SCHISTOCYTES 1+; SPHEROCYTE 1+; TARGET CELLS 1+
[2020-08-04 11:27] VITALS: BP 90/54; PULSE 87; TEMP 98.4
[2020-08-05 13:25] VITALS: BP 86/46; PULSE 82; TEMP 98.8
[2020-08-05 13:42] VITALS: BP 90/54; PULSE 78; TEMP 97.7
[2020-08-05 13:57] VITALS: BP 88/49; PULSE 73; TEMP 98.6
[2020-08-05 14:27] VITALS: BP 95/52; PULSE 73; TEMP 98.4
[2020-08-05 14:56] VITALS: BP 89/47; PULSE 75; TEMP 98.3
[2020-08-06 11:30] VITALS: BP 92/56; PULSE 68; TEMP 98.1
[2020-08-06 12:02] LABS: ALBUMIN 3.5 gm/dL (3.5-5.0); BILIRUBIN,TOTAL 1.6 mg/dL (0.0-1.0); CALCIUM 8.9 mg/dL (8.4-10.2); CREATININE, serum 1.91 (0.66-1.25); TOTAL PROTEIN 5.8 gm/dL (6.4-8.2)
[2020-08-06 12:09] LABS: MEAN CELL VOLUME 84 fl (80.0-100.0); MEAN CORPUSCULAR HGB CONC 34 g/dl (33.0-37.0); MEAN PLATELET VOLUME 9.8 fl (7.4-10.4); RED BLOOD COUNT 2.59 M/mm3 (4.20-5.60); REDCELL DISTRIBUTION WIDTH-CV 14.3 % (11.5-14.5)
[2020-08-06 12:14] LABS: HEMATOCRIT 21.7 % (42.0-52.0); HEMOGLOBIN 7.4 g/dl (13.5-18.0); MEAN CORPUSCULAR HEMOGLOBIN 29 pg (27.0-31.0)
[2020-08-06 12:15] LABS: PLATELET COUNT 24 K/mm3 (130-400)
[2020-08-06 13:00] LABS: NEUTROPHILS 2 % (42.0-75.2); PLATELET ESTIMATE DECREASED (NORMAL)
[2020-08-06 13:02] LABS: OVALOCYTES 1+; POIKILOCYTOSIS 1+
[2020-08-06 13:03] LABS: LYMPHOCYTE 17 % (20.0-51.0)
[2020-08-11] VITALS (18 sets, daily range): BP systolic 91–144; BP diastolic 44–102; PULSE 58–101; TEMP 98–98.3
--- NOTE | 2020-08-11 10:30 | NUR ---
Here for cares. PICC intact right upper arm with sterile dressing change done with insertion site cleansed with chloraprep x 1, chlorhexidine impregnated disk applied, skin prep, stat lock, and tegaderm applied. no signs or symptoms of IV complications noted. no concerns voiced. to return next week for cares. voiced understanding of instructions.
[2020-08-11 10:31] LABS: MEAN CELL VOLUME 85 fl (80.0-100.0); MEAN CORPUSCULAR HGB CONC 33 g/dl (33.0-37.0); RED BLOOD COUNT 1.65 M/mm3 (4.20-5.60); REDCELL DISTRIBUTION WIDTH-CV 14.4 % (11.5-14.5)
[2020-08-11 10:47] LABS: ALBUMIN 3.3 gm/dL (3.5-5.0); BILIRUBIN,TOTAL 1.2 mg/dL (0.0-1.0); CALCIUM 8.8 mg/dL (8.4-10.2); CREATININE, serum 1.52 (0.66-1.25); POTASSIUM 3.8 mmol/L (3.4-5.0); TOTAL PROTEIN 5.5 gm/dL (6.4-8.2)
[2020-08-11 11:09] LABS: MEAN CORPUSCULAR HEMOGLOBIN 28 pg (27.0-31.0)
[2020-08-11 11:10] LABS: HEMOGLOBIN 4.6 g/dl (13.5-18.0); PLATELET COUNT 1 K/mm3 (130-400)
[2020-08-11 11:17] LABS: LYMPHOCYTE 88 % (20.0-51.0); METAMYELOCYTE 2 % (0-0)
[2020-08-11 11:21] LABS: OVALOCYTES 1+
[2020-08-14 13:30] VITALS: BP 105/52; PULSE 61; TEMP 98.4
[2020-08-14 13:42] LABS: MEAN CELL VOLUME 85 fl (80.0-100.0); MEAN CORPUSCULAR HGB CONC 34 g/dl (33.0-37.0); MEAN PLATELET VOLUME 12.2 fl (7.4-10.4); RED BLOOD COUNT 2.23 M/mm3 (4.20-5.60); REDCELL DISTRIBUTION WIDTH-CV 14.2 % (11.5-14.5)
[2020-08-14 13:49] LABS: HEMATOCRIT 18.9 % (42.0-52.0); HEMOGLOBIN 6.4 g/dl (13.5-18.0); MEAN CORPUSCULAR HEMOGLOBIN 29 pg (27.0-31.0); PLATELET COUNT 13 K/mm3 (130-400)
[2020-08-14 13:50] LABS: ALBUMIN 2.9 gm/dL (3.5-5.0); BILIRUBIN,TOTAL 0.8 mg/dL (0.0-1.0); CALCIUM 8.3 mg/dL (8.4-10.2); CREATININE, serum 1.15 (0.66-1.25); POTASSIUM 3.5 mmol/L (3.4-5.0); TOTAL PROTEIN 5.2 gm/dL (6.4-8.2)
[2020-08-14 14:52] LABS: LYMPHOCYTE 89 % (20.0-51.0); NEUTROPHILS 4 % (42.0-75.2); OVALOCYTES 1+; PLATELET ESTIMATE DECREASED (NORMAL)
[~2020-08-15] VITALS: Ht 177.8 cm; Wt 57.2 kg
[2020-08-15] VITALS (12 sets, daily range): BP systolic 112–141; BP diastolic 61–88; PULSE 46–60; TEMP 97.6–98.6
[~2020-08-15 13:00] MED LIST changes: +AFRIN 15 ML15 ML NS; +NOXAFILTAB PO; +RT SPIRIVA18 MCG IH; +VENTOLIN0.09 MG IH
--- NOTE | 2020-08-18 10:05 | NUR ---
Report recieved pt is in ER awaiting transfer to another hospital.
== END 2020-08-18 10:06 | disposition home or self-care (01) ==
LOC: EUO 13:00
PROVIDERS: Internal Medicine Medical Oncology
DX: C92.01 Acute myeloblastic leukemia, in remission (principal)
CPT/HCPCS: J7050; P9037; P9040

== ENCOUNTER 2020-08-18 05:23 | Emergency (ER) | payer MEDICARE ==
[~2020-08-18] VITALS: Ht 182.9 cm; Wt 68.2 kg
[2020-08-18 05:54] LABS: MEAN CELL VOLUME 84 fl (80.0-100.0); MEAN CORPUSCULAR HGB CONC 33 g/dl (33.0-37.0); RED BLOOD COUNT 2.76 M/mm3 (4.20-5.60); REDCELL DISTRIBUTION WIDTH-CV 13.8 % (11.5-14.5)
[2020-08-18 05:58] LABS: INR 1.8 (0.8-3.0); PROTHROMBIN TIME 19.8 SECONDS (9.7-12.8)
[2020-08-18 06:03] LABS: HEMATOCRIT 23.1 % (42.0-52.0); HEMOGLOBIN 7.7 g/dl (13.5-18.0); MEAN CORPUSCULAR HEMOGLOBIN 28 pg (27.0-31.0); PLATELET COUNT 7 K/mm3 (130-400)
[2020-08-18 06:04] LABS: ALANINE AMINOTRANSFERASE 8 U/L (4-49); ALBUMIN 2.9 gm/dL (3.5-5.0); ALCOHOL(ethanol),MEDICAL < 10 mg/dL; ALKALINE PHOSPHATASE 60 U/L (50-136); ANION GAP 8 mmol/L (7-16); AST,SGOT 14 U/L (15-37); BILIRUBIN,TOTAL 1.4 mg/dL (0.0-1.0); BLOOD UREA NITROGEN 19 mg/dL (9-20); CALCIUM 8.1 mg/dL (8.4-10.2); CARBON DIOXIDE 27 mmol/L (22-30); CHLORIDE 101 mmol/L (98-107); CREATININE, serum 1.25 (0.66-1.25); GLUCOSE 135 mg/dL (74-106); POTASSIUM 3.3 mmol/L (3.4-5.0); SODIUM 136 mmol/L (137-145); TOTAL PROTEIN 5.3 gm/dL (6.4-8.2)
[2020-08-18 06:15] LABS: TROPONIN-I 0.016 ng/mL (0.000-0.035)
[2020-08-18 07:06] LABS: LYMPHOCYTE 98 % (20.0-51.0); PLATELET ESTIMATE DECREASED (NORMAL)
[2020-08-18 08:23] LABS: COLLECTION METHOD CLEAN CATCH
[2020-08-18 08:42] LABS: MUCOUS Present /lpf; PH 6 (5-8); SQUAMOUS EPITHELIAL None Seen /hpf; URINE APPEARANCE Hazy; URINE BACTERIA Rare /hpf; URINE BILIRUBIN Negative (NEGATIVE); URINE BLOOD Negative (NEGATIVE); URINE COLOR Yellow; URINE GLUCOSE Negative (NEGATIVE); URINE KETONE Negative (NEGATIVE); URINE LEUKOCYTE ESTERASE Negative (NEGATIVE); URINE NITRATE Negative (NEGATIVE); URINE PROTEIN(semi-quant) Negative (NEGATIVE); URINE RBC 0-2 /hpf; URINE UROBILINOGEN >=4.0 mg/dL (NEGATIVE); URINE WBC 0-2 /hpf
[2020-08-18 08:52] LABS: TRICYCLIC ANTIDEPRESS URINE NEGATIVE
[2020-08-18 09:30] VITALS: BP 122/81; PULSE 62; TEMP 98.2
== END 2020-08-18 09:30 | disposition short-term general hospital (02) ==
LOC: COL.ER 05:23
PROVIDERS: Emergency Medicine
DX: I60.9 Nontraumatic subarachnoid hemorrhage, unspecified (principal); D69.6 Thrombocytopenia, unspecified; Z87.891 Personal history of nicotine dependence
CPT/HCPCS: J7030; P9035; Q9967